=== PATIENT | male | born 1970 | race Two or more races ===

== ENCOUNTER 2023-05-13 16:55 | Inpatient (IN) | payer MEDICAID, SELFPAY ==
--- NOTE | ~2023-05-13 | XR_ITS ---
EXAMINATION: XR FOREARM, RIGHT CLINICAL INFORMATION: Forearm swelling COMPARISON: None available. TECHNIQUE: AP and lateral views of the right forearm were obtained. FINDINGS: Diffuse subcutaneous edema. No soft tissue gas or radiopaque foreign body. No osseous abnormality. XR/XR forearm RT 2V IMPRESSION: Diffuse subcutaneous edema. No soft tissue gas or radiopaque foreign body.
--- NOTE | ~2023-05-13 | CT_ITS ---
EXAMINATION: CT FOREARM WITH CONTRAST, RIGHT CLINICAL INFORMATION: Right forearm swelling COMPARISON: Same day radiographs and ultrasound TECHNIQUE: CT of the right forearm is performed following intravenous administration of 85 mL Omnipaque 350 iodinated contrast. Sagittal and coronal reformats were performed. This CT examination was performed using dose optimization techniques as appropriate, variously including the following: *Automated exposure control *Adjustment of mA and/or kV according to patient size (this includes techniques or standardized protocols for targeted exams where dose is matched to indication/reason for exam; i.e. extremities or head) *Use of iterative reconstruction technique DLP: 188 mGy-cm FINDINGS: Diffuse subcutaneous edema, most prominent along the posterior aspect of the proximal forearm where there is skin thickening and an irregularly shaped, peripherally enhancing collection in the subcutaneous fat measuring 2.2 x 0.8 x 1.7 cm. No soft tissue gas. No radiopaque foreign body. No cortical erosion, periostitis, or other evidence to suggest osteomyelitis. No elbow joint effusion. CT/CT forearm RT w IV con IMPRESSION: Diffuse subcutaneous edema, most prominent along the posterior aspect of the proximal forearm where there is a 2.2 x 0.8 x 1.7 cm peripherally enhancing collection which could represent an abscess.
--- NOTE | ~2023-05-13 | US_ITS ---
EXAMINATION: US VENOUS WITH DOPPLER UPPER EXTREMITY, RIGHT CLINICAL INFORMATION: Right arm swelling/redness evaluate for DVT COMPARISON: None available. TECHNIQUE: Ultrasound of the upper extremity is performed using compression sonography and color and pulse Doppler flow with assessment of augmentation of flow. There is also imaging and Doppler assessment of the jugular and subclavian veins. Spectral analysis with color-flow imaging is performed. FINDINGS: The right internal jugular, subclavian, axillary, and brachial veins are patent on color Doppler and demonstrate normal waveforms on spectral Doppler. No occlusive thrombus is identified. Normal compressibility is demonstrated distal to the clavicle. The right basilic veins are patent without evidence of thrombus. Right cephalic vein was not well visualized. Lymph node noted in the right distal arm measuring 9 mm in short axis. Soft tissue edema involving the right distal arm in the region of the wound. US/US venous duplex UE RT IMPRESSION: 1. No DVT demonstrated in the right upper extremity. 2. Right cephalic vein was not well visualized. 3. Lymph node noted in the right distal arm measuring 9 mm in short axis. 4. Soft tissue edema involving the right distal arm in the region of the wound.
[2023-05-13 17:47] VITALS: BP 132/78; PULSE 103; RESP 18; TEMP 37.6; O2SAT 97; BMI 28.1
--- NOTE | 2023-05-13 17:55 | ED.GENADULT ---
HPI - General Adult General Chief complaint: General Medical Stated complaint: Right arm elbow Infected? Time Seen by Provider: 05/13/23 19:04 Source: patient Mode of arrival: ambulatory Limitations: no limitations History of Present Illness HPI narrative: Patient with history of IVDA , uses heroin with multiple abscesses for last few months noticed redness and swelling of the right forearm for last 3 days getting worse since yesterday with chills and low-grade fever able to move his hand and fingers without significant pain Related Data Home Medications Medication Instructions Recorded Confirmed gabapentin 300 mg capsule 300 mg PO TID 05/13/23 05/13/23 (Neurontin) prazosin 2 mg capsule 2 mg PO BEDTIME 05/13/23 05/13/23 quetiapine 100 mg tablet (Seroquel) 100 mg PO BEDTIME 05/13/23 05/13/23 quetiapine 50 mg tablet (Seroquel) 50 mg PO BEDTIME 05/13/23 05/13/23 Allergies Allergy/AdvReac Type Severity Reaction Status Date / Time cephalexin [From Keflex] Allergy Hives Verified 05/13/23 17:46 Review of Systems Review of Systems: Yes all other systems are reviewed and are negative [facility] Past Medical History Medical History IV drug user Mood disorder Non-insulin dependent type 2 diabetes mellitus Polysubstance abuse Social History Social History Alcohol intake: never Patient Tobacco Use Status: Current everyday Tobacco user Smoked in Last 30 Days: Yes Use of substances other than those prescribed or required for medical reasons: Yes Substance Use Type: Crack/Cocaine and Heroin Advance Directives: No Advance Directives Information Provided: No Nutrition Risks: No Nutritional Risk service: No Physical Exam ED Vital Signs: Vital Signs - 24 hr 05/13/23 17:47 05/13/23 19:19 Temperature 99.6 F 99.7 F Pulse Rate 103 H 100 Respiratory Rate 18 18 Blood Pressure 132/78 137/81 Pulse Oximetry 97 97 Oxygen Delivery Method Room Air Room Air BMI result Body Mass Index 28.1 Appearance: Alert. Oriented X3. No acute distress. ENT: Pharynx normal. Oral Mucosa moist Neck: Normal inspection. Neck supple. CVS: Normal heart rate and rhythm. Pulses normal. Respiratory: No respiratory distress. Equal air entry bilateral, Abdomen: Soft and nontender. Bowel sounds are present, no mass palpable, no CVA tenderness Skin: Skin warm and dry. Normal skin color. Normal skin turgor. Extremities: No lower extremity edema. No calf tenderness, swelling of right forearm with erythema and injury neurovascular intact Diffuse erythematous swelling of right forearm no signs of compartment syndrome at this time Neuro: Oriented X 3. No motor deficit. No sensory deficit.No cerebellar signs , cranial nerves II-XII intact Course Course Course Narrative: RME: 52 yold male presents to the ED For right foream readness spreading up towards chest with swelling. patient is an IV drug user. Labs and imaging ordered. Patient brought immediatley back to the ED. Charge Chaparrita brought patient to the ED. Xray and US ordered Medications Administered Generic Name Dose Route Start Last Admin Trade Name Freq PRN Reason Stop Dose Admin Acetaminophen 650 mg 05/13/23 21:28 05/13/23 22:25 Acetaminophen 325 Mg Tablet PO 650 mg Q6H PRN Administration Pain, Mild (Pain Scale 1-3) Enoxaparin Sodium 40 mg 05/13/23 22:00 05/13/23 22:25 Enoxaparin Sodium 40 Mg/0.4 Ml Syringe SUBCUT 40 mg Q24H JAY JAY Administration Gabapentin 300 mg 05/14/23 09:00 05/14/23 10:19 Gabapentin 300 Mg Capsule PO 300 mg TID JAY JAY Administration Piperacillin Sod/Tazobactam 100 mls @ 200 mls/hr 05/14/23 02:00 05/14/23 11:22 Sod 4.5 gm/ Sodium Chloride IV Infused Q6H JAY JAY Infusion Vancomycin HCl 1,000 mg/ 270 mls @ 270 mls/hr 05/14/23 09:00 05/14/23 12:26 Sodium Chloride IV Infused Q12H JAY JAY Infusion Insulin Human Lispro 0 unit 05/14/23 07:30 05/14/23 07:34 Insulin Lispro 100 Unit/Ml 3 Ml Vial SUBCUT Not Given QIDACHS [facility] Protocol Sodium Chloride 3 ml 05/14/23 00:00 05/14/23 09:03 0.9 % Sodium Chloride Flush 3 Ml Syringe IVFLUSH Not Given QSHIFT [facility] Discontinued Medications Generic Name Dose Route Start Last Admin Trade Name Freq PRN Reason Stop Dose Admin Gabapentin 300 mg 05/13/23 22:40 05/13/23 23:34 Gabapentin 300 Mg Capsule PO 05/13/23 22:41 300 mg ONCE ONE Administration Sodium Chloride 1,000 mls @ 999 mls/hr 05/13/23 19:11 05/13/23 21:00 Ns IV 05/13/23 20:11 Infused .Q1H1M ONE Infusion Vancomycin HCl 1,500 mg/ 500 mls @ 333.333 mls/hr 05/13/23 19:11 05/13/23 22:30 Sodium Chloride IV 05/13/23 20:40 Infused ONCE ONE Infusion Piperacillin Sod/Tazobactam 100 mls @ 200 mls/hr 05/13/23 19:11 05/13/23 20:51 Sod 4.5 gm/ Sodium Chloride IV 05/13/23 19:40 Infused ONCE ONE Infusion Iohexol 100 ml 05/13/23 20:39 05/13/23 20:40 Iohexol 350 Mg/Ml 100 Ml Infus..Btl IV 05/13/23 20:40 85 ml ONCE ONE Administration Ketorolac Tromethamine 30 mg 05/14/23 05:55 05/14/23 06:00 Ketorolac Tromethamine 30 Mg/Ml Vial IVPUSH 05/14/23 05:56 30 mg ONCE ONE Administration Prazosin HCl 2 mg 05/13/23 22:40 05/13/23 23:32 Prazosin Hcl 1 Mg Capsule PO 05/13/23 22:41 2 mg ONCE ONE Administration Protocol Quetiapine Fumarate 150 mg 05/13/23 21:46 05/13/23 22:26 Quetiapine Fumarate 50 Mg Tablet PO 05/13/23 21:47 150 mg ONCE ONE Administration Medical Decision Making Medical Decision Making [facility] Narrative: Patient with IVDA use with right forearm cellulitis ultrasound negative for DVT or fluid collection would do CT scan to rule out any deeper abscess no signs of necrotizing fasciitis/compartment syndrome at this time will give IV vancomycin and IV Zosyn Differential Diagnosis Differential Diagnoses: The differential diagnosis associated with the presentation includes Cellulitis/compartment syndrome/necrotizing fasciitis/abscess Admission/Observation Consideration of admission/observation: Escalation of care including admission/observation considered Consult Healthcare Provider Management of the patient was discussed with: Hospitalist Lab Data [facility] Lab Attestation statement: I reviewed the patient's lab results. 05/13/23 19:32 05/13/23 19:32 Labs: Lab Results 05/13/23 05/13/23 05/13/23 Range/Units 19:32 19:32 19:32 WBC 15.2 H (4.8-10.8) X10*3/uL RBC 4.21 L (4.60-5.80) X10*6/uL Hgb 11.6 L (14.0-18.0) g/dl Hct 35.4 L (42.0-52.0) % MCV 84.1 (80.0-98.0) fL MCH 27.6 (27.0-33.0) pg MCHC 32.8 (31.0-36.0) g/dl RDW 13.0 (11.0-16.0) % Plt Count 204 (160-400) X10*3/uL MPV 9.9 (9.4-12.4) fL Immature Gran % (Auto) 0.4 (0.0-0.4) % Neut % (Auto) 55.7 (45-73) % Lymph % (Auto) 33.4 (20-40) % [place] % (Auto) 9.3 (2-11) % Eos % (Auto) 0.9 (0-4) % Baso % (Auto) 0.3 (0-2) % Lymph # (Auto) 5.1 H (1.2-4.9) X10*3/uL [place] # (Auto) 1.4 H (0.1-1.2) X10*3/uL Eos # (Auto) 0.1 (0.0-0.4) X10*3/uL Baso # (Auto) 0.1 (0.0-0.2) X10*3/uL Abs Immat Gran (auto) 0.06 H (0.00-0.03) X10*3/uL Absolute Neuts (auto) 8.5 H (2.0-8.3) x10*3/uL Absolute Nucleated RBC 0.000 (0.0-0.012) X10*3/uL Nucleated RBC % (auto) 0.0 (0.0-0.2) /100WBC Smear Tech's Comments VERIFIED ESR 70 H (0-15) MM/HR Sodium 140 (135-145) mmol/L Potassium 4.4 (3.3-5.1) mmol/L Chloride 103 (96-108) mmol/L Carbon Dioxide 26 (22-29) mmol/L Anion Gap 15 (12-20) BUN 14 (9-16) mg/dL Creatinine 0.98 (0.5-1.4) mg/dL Estim Creat Clear Calc 96.9 Estimated GFR > 60 Random Glucose 95 (60-115) mg/dL Lactic Acid (0.5-2.0) mmol/L Calcium 10.2 (8.4-10.2) mg/dL Total Bilirubin 0.5 (0.0-1.0) mg/dL AST 23 (5-37) U/L ALT 30 (0-40) U/L Alkaline Phosphatase 94 (39-117) U/L C-Reactive Protein 5.85 H (< or = 0.50) mg/dL Total Protein 8.8 H (6.5-8.0) g/dL Albumin 4.3 (3.5-5.0) g/dL 05/13/23 Range/Units 19:32 WBC (4.8-10.8) X10*3/uL RBC (4.60-5.80) X10*6/uL Hgb (14.0-18.0) g/dl Hct (42.0-52.0) % MCV (80.0-98.0) fL MCH (27.0-33.0) pg MCHC (31.0-36.0) g/dl RDW (11.0-16.0) % Plt Count (160-400) X10*3/uL MPV (9.4-12.4) fL Immature Gran % (Auto) (0.0-0.4) % Neut % (Auto) (45-73) % Lymph % (Auto) (20-40) % [place] % (Auto) (2-11) % Eos % (Auto) (0-4) % Baso % (Auto) (0-2) % Lymph # (Auto) (1.2-4.9) X10*3/uL [place] # (Auto) (0.1-1.2) X10*3/uL Eos # (Auto) (0.0-0.4) X10*3/uL Baso # (Auto) (0.0-0.2) X10*3/uL Abs Immat Gran (auto) (0.00-0.03) X10*3/uL Absolute Neuts (auto) (2.0-8.3) x10*3/uL Absolute Nucleated RBC (0.0-0.012) X10*3/uL Nucleated RBC % (auto) (0.0-0.2) /100WBC Smear Tech's Comments ESR (0-15) MM/HR Sodium (135-145) mmol/L Potassium (3.3-5.1) mmol/L Chloride (96-108) mmol/L Carbon Dioxide (22-29) mmol/L Anion Gap (12-20) BUN (9-16) mg/dL Creatinine (0.5-1.4) mg/dL Estim Creat Clear Calc Estimated GFR Random Glucose (60-115) mg/dL Lactic Acid 0.9 (0.5-2.0) mmol/L Calcium (8.4-10.2) mg/dL Total Bilirubin (0.0-1.0) mg/dL AST (5-37) U/L ALT (0-40) U/L Alkaline Phosphatase (39-117) U/L C-Reactive Protein (< or = 0.50) mg/dL Total Protein (6.5-8.0) g/dL Albumin (3.5-5.0) g/dL Radiology Impression Discussion of test interpretation with radiology: I have reviewed the radiologist's reading. Radiologist Impression: FINDINGS: Diffuse subcutaneous edema, most prominent along the posterior aspect of the proximal forearm where there is skin thickening and an irregularly shaped, peripherally enhancing collection in the subcutaneous fat measuring 2.2 x 0.8 x 1.7 cm. No soft tissue gas. No radiopaque foreign body. No cortical erosion, periostitis, or other evidence to suggest osteomyelitis. No elbow joint effusion. CT/CT forearm RT w IV con IMPRESSION: Diffuse subcutaneous edema, most prominent along the posterior aspect of the proximal forearm where there is a 2.2 x 0.8 x 1.7 cm peripherally enhancing collection which could represent an abscess. ? Discharge Plan Discharge Clinical Impression: Cellulitis, IV drug user, Abscess of forearm, right Patient Disposition: Admitted As Inpatient
[2023-05-13 19:19] VITALS: BP 137/81; PULSE 100; RESP 18; TEMP 37.6; O2SAT 97
[2023-05-13] MEDS: 0.9 % Sodium Chloride 1,000 ML 999 ML IV (19:42)
[2023-05-13] MEDS: Piperacillin Sodium/Tazobactam 4.5 GM in 0.9 % Sodium Chloride 100 ML IV (19:44)
[2023-05-13 19:47] LABS: Basophils Absolute Auto 0.1 X10*3/uL (0.0-0.2); Basophils Percent Auto 0.3 % (0-2); Eosinophils Absolute Auto 0.1 X10*3/uL (0.0-0.4); Eosinophils Percent Auto 0.9 % (0-4); Hematocrit 35.4 % (42.0-52.0); Hemoglobin 11.6 g/dl (14.0-18.0); Imm Gran Abs Auto 0.06 X10*3/uL (0.00-0.03); Imm Gran Pct Auto 0.4 % (0.0-0.4); Lymphocytes Absolute Auto 5.1 X10*3/uL (1.2-4.9); Lymphocytes Percent Auto 33.4 % (20-40); MANUAL DIFF FLAG SCAN; Mean Corpuscular HGB Conc 32.8 g/dl (31.0-36.0); Mean Corpuscular Hemoglobin 27.6 pg (27.0-33.0); Mean Corpuscular Volume 84.1 fL (80.0-98.0); Mean Platelet Volume 9.9 fL (9.4-12.4); Monocytes Absolute Auto 1.4 X10*3/uL (0.1-1.2); Monocytes Percent Auto 9.3 % (2-11); Neutrophils Absolute Auto 8.5 x10*3/uL (2.0-8.3); Neutrophils Percent Auto 55.7 % (45-73); Platelet Count 204 X10*3/uL (160-400); Red Blood Count 4.21 X10*6/uL (4.60-5.80); SCAN SMEAR FLAG 1; White Blood Count 15.2 X10*3/uL (4.8-10.8)
[2023-05-13 19:52] LABS: Lactic Acid 0.9 mmol/L (0.5-2.0)
[2023-05-13 19:57] LABS: Alanine Aminotransferase 30 U/L (0-40); Albumin Level 4.3 g/dL (3.5-5.0); Alkaline Phosphatase 94 U/L (39-117); Anion Gap 15 (12-20); Aspartate Amino Transferase 23 U/L (5-37); Bilirubin Total 0.5 mg/dL (0.0-1.0); Blood Urea Nitrogen 14 mg/dL (9-16); C Reactive Protein 5.85 mg/dL (< or = 0.50); Calcium 10.2 mg/dL (8.4-10.2); Carbon Dioxide 26 mmol/L (22-29); Chloride 103 mmol/L (96-108); Creatinine Clr Calc Pharmacy 96.9; Estimated Glomerular Filt Rate > 60; Glucose Random 95 mg/dL (60-115); Potassium 4.4 mmol/L (3.3-5.1); Sodium 140 mmol/L (135-145); Total Protein 8.8 g/dL (6.5-8.0)
[2023-05-13 20:08] LABS: SLIDE REVIEW VERIFIED
[2023-05-13 20:34] LABS: Erythrocyte Sedimentation Rate 70 MM/HR (0-15)
[2023-05-13] MEDS: iohexoL 350 MG/ML 100 ML INFUS..BTL IV (20:40)
[2023-05-13] MEDS: vancomycin HCL 1,500 MG in 0.9 % Sodium Chloride 500 ML 333.33 MG IV (20:59)
--- NOTE | 2023-05-13 21:11 | PC.NURSE ---
This automatic typewriter inspector assumed care of this Pt at 1900. Pt reports constant 9/10 right arm pain x few days with fevers, chills and nausea after IV drug use. Arm is swollen, warm to touch from elbow down to lower forearm. IV line established, blood work collected and sent to lab, meds given per NOV, Pt ambulated independently to with steady gait.
--- NOTE | 2023-05-13 21:29 | PM.IMHP ---
History of Present Illness Date of Service: 05/13/23 Chief Complaint: Right arm swelling This is a 52-year-old male with pertinent history of IV poly substance use disorder, hiw-kgkefwy-cdremzyir diabetes mellitus, mood disorder, tobacco use disorder who presents to the emergency department for evaluation of right arm pain, swelling redness. Patient states it started 2 days prior to presentation. It has been progressive and associated with purulent drainage. Patient states that he does have a history of multiple abscesses in the past due to his history of IV drug use. He uses IV heroin and IV fentanyl. Admits chills and fever. No chest discomfort, palpitations, shortness of breath, abdominal pain, changes in urinary or bowel habits. In the emergency department, patient was found to be septic and imaging concerning for abscess. Review of Systems Constitutional: Constitutional: Reports chills, Reports fatigue, Reports fever(s) and Reports malaise Cardiovascular: Cardiovascular: Reports no additional cardiovascular complaints Respiratory: Respiratory: Reports no additional respiratory complaints Gastrointestinal: Gastrointestinal: Reports no additional gastrointestinal complaints Genitourinary: Genitourinary: Reports no additional male genitourinary complaints Endocrine: Endocrine: Reports fatigue PMFSH Medical History IV drug user Mood disorder Non-insulin dependent type 2 diabetes mellitus Polysubstance abuse Pertinent family history: No family history of early CAD Social History Alcohol intake: never Smoked in Last 30 Days: Yes Use of substances other than those prescribed or required for medical reasons: Yes Substance Use Type: Crack/Cocaine and Heroin Advance Directives: No Advance Directives Information Provided: No Meds Allergies Allergy/AdvReac Type Severity Reaction Status Date / Time cephalexin [From Keflex] Allergy Hives Verified 05/13/23 17:46 Home Medications Medication Instructions Recorded Confirmed Last Taken Type gabapentin 300 mg capsule 300 mg PO 05/13/23 Unknown History (Neurontin) prazosin 2 mg capsule 2 mg PO BEDTIME 05/13/23 05/13/23 Unknown History quetiapine 100 mg tablet (Seroquel) 100 mg PO BEDTIME 05/13/23 05/13/23 Unknown History quetiapine 50 mg tablet (Seroquel) 50 mg PO BEDTIME 05/13/23 05/13/23 Unknown History Physical Exam Vital Signs and Narrative: Vital Signs: Last Vital Signs Temp 99.7 F 05/13/23 19:19 Pulse 100 05/13/23 19:19 Resp 18 05/13/23 19:19 BP 137/81 05/13/23 19:19 Pulse Ox 97 05/13/23 19:19 O2 Del Method Room Air 05/13/23 19:19 BMI result Body Mass Index 28.1 Middle-aged male lying in bed in no distress Neck supple, no JVD Regular rate and rhythm, S1-S2 heard Regular breath sounds bilaterally, no wheezing or crackles appreciated Abdomen soft nontender, no guarding, no rigidity Patient is awake, alert and oriented to self, place, time and person ; no focal motor deficit Skin: Bilateral hands with injection robertson, right arm with swelling, tenderness and erythema and fluctuance Psych: Normal mood No pedal edema Results Labs 05/13/23 19:32 05/13/23 19:32 Labs: Laboratory Results - last 24 hr 05/13/23 05/13/23 05/13/23 19:32 19:32 19:32 MCV 84.1 MCH 27.6 MCHC 32.8 RDW 13.0 Plt Count 204 MPV 9.9 Immature Gran % (Auto) 0.4 Neut % (Auto) 55.7 Lymph % (Auto) 33.4 [place] % (Auto) 9.3 Eos % (Auto) 0.9 Baso % (Auto) 0.3 Lymph # (Auto) 5.1 H [place] # (Auto) 1.4 H Eos # (Auto) 0.1 Baso # (Auto) 0.1 Abs Immat Gran (auto) 0.06 H Absolute Neuts (auto) 8.5 H Absolute Nucleated RBC 0.000 Nucleated RBC % (auto) 0.0 Smear Tech's Comments VERIFIED ESR 70 H Anion Gap 15 Estim Creat Clear Calc 96.9 Estimated GFR > 60 Random Glucose 95 Lactic Acid Calcium 10.2 Total Bilirubin 0.5 AST 23 ALT 30 Alkaline Phosphatase 94 C-Reactive Protein 5.85 H Total Protein 8.8 H Albumin 4.3 05/13/23 19:32 MCV MCH MCHC RDW Plt Count MPV Immature Gran % (Auto) Neut % (Auto) Lymph % (Auto) [place] % (Auto) Eos % (Auto) Baso % (Auto) Lymph # (Auto) [place] # (Auto) Eos # (Auto) Baso # (Auto) Abs Immat Gran (auto) Absolute Neuts (auto) Absolute Nucleated RBC Nucleated RBC % (auto) Smear Tech's Comments ESR Anion Gap Estim Creat Clear Calc Estimated GFR Random Glucose Lactic Acid 0.9 Calcium Total Bilirubin AST ALT Alkaline Phosphatase C-Reactive Protein Total Protein Albumin Imaging Radiologist's Impressions: Impressions Venous Duplex 05/13/23 18:13 IMPRESSION: 1. No DVT demonstrated in the right upper extremity. 2. Right cephalic vein was not well visualized. 3. Lymph node noted in the right distal arm measuring 9 mm in short axis. 4. Soft tissue edema involving the right distal arm in the region of the wound. Forearm X-Ray 05/13/23 18:41 IMPRESSION: Diffuse subcutaneous edema. No soft tissue gas or radiopaque foreign body. Forearm CT 05/13/23 20:22 IMPRESSION: Diffuse subcutaneous edema, most prominent along the posterior aspect of the proximal forearm where there is a 2.2 x 0.8 x 1.7 cm peripherally enhancing collection which could represent an abscess. Assessment and Plan (1) Cellulitis: Status: Acute Plan This is a 52-year-old male with pertinent history of IV poly substance use disorder, rrp-doglmwc-ckvldfwrt diabetes mellitus, mood disorder, tobacco use disorder who presents to the emergency department for evaluation of right arm pain, swelling redness. #. Sepsis due to right arm purulent cellulitis and abscess. Will admit patient and initiate empiric IV antibiotics. Resuscitated with IV crystalloids. Consulting general surgery for I&D. Lactic acid and blood cultures obtained #. Poly substance use disorder. Patient admits to using heroin and fentanyl. UDS pending. Addiction team consulted. Monitor for withdrawal #. Tobacco use disorder. Refused nicotine patch #. Hnf-occkerv-zmlvbxwsu diabetes mellitus. Initiating Accu-Cheks with sliding scale insulin. #. Mood disorder. Continue home mood stabilizers Med rec pending DVT prophylaxis: Lovenox Full code Admit as inpatient and will require two night minimum hospital stay for IV antibiotics Time Spent With Patient Time: Total time managing care of this patient today ____ minutes. Quality Stroke Does the patient have a stroke diagnosis?: No VTE Prior VTE?: No VTE Risk Level:: Medical - moderate - high VTE Device Contraindication: Treatment Not Indicated VTE Drug Contraindication: N/A - Med Ordered
--- NOTE | 2023-05-13 21:55 | PHA.PROG ---
Admission Date/Time: May 13, 2023 21:28 Indication: SKIN Weight in k.183 kg Adjusted body weight in Kg: [place] body weight in Kg: Obesity Dosing Indication % IBW: Serum Creatinine - Last 168 Hours 05/13/23 19:32 Creatinine 0.98 Estimated CrCl and GFR - Last 168 Hours 05/13/23 19:32 Estim Creat Clear Calc 96.9 Estimated GFR > 60 Vancomycin Loading Dose: 1500 Current Vancomycin Dosing Regimen:1000 Q12H Vancomycin Monitoring using AUC goal of 400 - 600 range with trough as surrogate marker:535 Date and Time for next Vancomycin Level to be drawn: Pharmacist Comments on Vancomycin Plan: Vancomycin dosing will take advantage of Saper[employer] as a clinical decision support tool that uses Bayesian modeling to calculate individual patient's pharmacokinetic parameters and forecast the patient's drug concentration time course with the target goal AUC 24 range of 400 - 600 mg/L/hr.
[2023-05-13] MEDS: Acetaminophen 325 MG TABLET 650 MG PO (22:25)
[2023-05-13] MEDS: Enoxaparin Sodium 40 MG/0.4 ML SYRINGE SUBCUT (22:25)
[2023-05-13] MEDS: QUEtiapine Fumarate 50 MG TABLET 150 MG PO (22:26)
--- NOTE | 2023-05-13 23:00 | PC.NURSE ---
Pt reports he takes 90 mg of Methadone, last dose was this AM, doses at [facility] in [place].
[2023-05-13] MEDS: Prazosin HCL 1 MG CAPSULE 2 MG PO (23:32)
[2023-05-13 23:34] VITALS: BP 113/69; PULSE 90; RESP 16; TEMP 37.1; O2SAT 97
[2023-05-13] MEDS: Gabapentin 300 MG CAPSULE PO (23:34)
[2023-05-14] MEDS: 0.9 % Sodium Chloride Flush 3 ML SYRINGE IVFLUSH ×2 (01:25→20:37)
[2023-05-14] MEDS: Piperacillin Sodium/Tazobactam 4.5 GM in 0.9 % Sodium Chloride 100 ML IV ×4 (01:31→20:36)
[2023-05-14 02:32] VITALS: BP 98/60; PULSE 83; RESP 14; O2SAT 96
[2023-05-14 05:17] LABS: Basophils Absolute Auto 0.1 X10*3/uL (0.0-0.2); Basophils Percent Auto 0.4 % (0-2); Eosinophils Absolute Auto 0.2 X10*3/uL (0.0-0.4); Eosinophils Percent Auto 1.5 % (0-4); Hematocrit 33.2 % (42.0-52.0); Hemoglobin 10.7 g/dl (14.0-18.0); Imm Gran Abs Auto 0.06 X10*3/uL (0.00-0.03); Imm Gran Pct Auto 0.5 % (0.0-0.4); Lymphocytes Percent Auto 38.2 % (20-40); MANUAL DIFF FLAG SCAN; Mean Corpuscular HGB Conc 32.2 g/dl (31.0-36.0); Mean Corpuscular Hemoglobin 27.6 pg (27.0-33.0); Mean Corpuscular Volume 85.8 fL (80.0-98.0); Mean Platelet Volume 10.2 fL (9.4-12.4); Monocytes Absolute Auto 1.7 X10*3/uL (0.1-1.2); Monocytes Percent Auto 12.8 % (2-11); Neutrophils Absolute Auto 6.1 x10*3/uL (2.0-8.3); Neutrophils Percent Auto 46.6 % (45-73); Platelet Count 197 X10*3/uL (160-400); Red Blood Count 3.87 X10*6/uL (4.60-5.80); Red Cell Distribution Width 12.9 % (11.0-16.0); SCAN SMEAR FLAG 1
[2023-05-14 05:33] LABS: Anion Gap 10 (12-20); Blood Urea Nitrogen 13 mg/dL (9-16); Calcium 9.3 mg/dL (8.4-10.2); Carbon Dioxide 26 mmol/L (22-29); Chloride 107 mmol/L (96-108); Creatinine Clr Calc Pharmacy 105.6; Estimated Glomerular Filt Rate > 60; Glucose Random 115 mg/dL (60-115); Potassium 3.8 mmol/L (3.3-5.1); Sodium 139 mmol/L (135-145)
[2023-05-14 05:38] LABS: SLIDE REVIEW VERIFIED
[2023-05-14 05:56] VITALS: BP 126/88; PULSE 85; RESP 20; TEMP 36.8; O2SAT 100
[2023-05-14] MEDS: Ketorolac Tromethamine 30 MG/ML VIAL IVPUSH (06:00)
--- NOTE | 2023-05-14 06:04 | PC.NURSE ---
Pt sitting at edge of stretcher, reports 10/10 right arm pain, small open area noted near elbow, draining yellow fluid. Dr. Cavazos notified, new order given as documented, WCTM.
--- NOTE | 2023-05-14 06:28 | PM.EVENT ---
Event Note Date of Service: 05/14/23 Event Note: General surgery requesting ortho consult for arm abscess. Will consult ortho for assistance Time Spent With Patient Time: Total time managing care of this patient today ____ minutes.
--- NOTE | 2023-05-14 07:07 | PHA.MEDREC ---
Pharmacy Consult ? Medication Reconciliation Pharmacy has completed the medication reconciliation. Completed by RN, reviewed by pharmacy Omar
--- NOTE | 2023-05-14 07:19 | PM.CNGS ---
History of Present Illness Consult details Consult date: 05/14/23 Narrative: The patient is a 52-year-old gentleman, RHD, seen at the request of the hospitalist service due to a right arm abscess and extensive right hand pain and swelling. Patient notes that he does shoot IV drugs, but had never shot in this location. He states that on Sunday he started having increasing pain involving his hand and then started developed swelling. He denies remembering any trauma to this location. He is exquisitely uncomfortable. Review of Systems Review of Systems: Yes all other systems are reviewed and are negative Constitutional: Constitutional: Reports as per [facility] Past Medical History Medical History IV drug user Mood disorder Non-insulin dependent type 2 diabetes mellitus Polysubstance abuse Social History Social History Alcohol intake: never Patient Tobacco Use Status: Current everyday Tobacco user Smoked in Last 30 Days: Yes Use of substances other than those prescribed or required for medical reasons: Yes Substance Use Type: Crack/Cocaine and Heroin Advance Directives: No Advance Directives Information Provided: No Nutrition Risks: No Nutritional Risk Meds Allergies Allergy/AdvReac Type Severity Reaction Status Date / Time cephalexin [From Keflex] Allergy Hives Verified 05/13/23 17:46 Active Medications: Current Medications Acetaminophen (Acetaminophen 325 Mg Tablet) 650 mg PO Q6H PRN PRN Reason: Pain, Mild (Pain Scale 1-3) Last Admin: 05/13/23 22:25 Dose: 650 mg Dextrose (Dextrose 50 % 25 Gm/50 Ml Syringe) 25 gm IVPUSH Q15M PRN; Protocol PRN Reason: per Hypoglycemia Standing Ord. Enoxaparin Sodium (Enoxaparin Sodium 40 Mg/0.4 Ml Syringe) 40 mg SUBCUT Q24H JAY [facility]AY Last Admin: 05/13/23 22:25 Dose: 40 mg Glucose (Glucose Gel 15 Gm Gel..Gram.) 15 gm PO Q15M PRN; Protocol PRN Reason: per Hypoglycemia Standing Ord. Piperacillin Sod/Tazobactam (Sod 4.5 gm/ Sodium Chloride) 100 mls @ 200 mls/hr IV Q6H [facility] Last Infusion: 05/14/23 02:01 Dose: Infused Vancomycin HCl 1,000 mg/ (Sodium Chloride) 270 mls @ 270 mls/hr IV Q12H [facility] Insulin Human Lispro (Insulin Lispro 100 Unit/Ml 3 Ml Vial) 0 unit SUBCUT QIDACHS JAY JAY; Protocol Melatonin (Melatonin 3 Mg Tablet) 6 mg PO BEDTIME PRN PRN Reason: Insomnia Ondansetron HCl (Ondansetron Hcl 4 Mg/2 Ml Vial) 4 mg IVPUSH Q8H PRN PRN Reason: Nausea and Vomiting Pharmacy Consult (Consult Rx Vancomycin Dosing) 1 each MISCELLANE DAILY PRN PRN Reason: Consult order Pharmacy Consult (Consult Rx Perform Med Rec) 1 each MISCELLANE ONCE PRN PRN Reason: Consult order Sodium Chloride (0.9 % Sodium Chloride Flush 3 Ml Syringe) 3 ml IVFLUSH QSHIFT COUNTS INCLUDE 234 BEDS AT THE [facility] Last Admin: 05/14/23 01:25 Dose: 3 ml Home Medications Medication Instructions Recorded Confirmed Last Taken Type gabapentin 300 mg capsule 300 mg PO TID 05/13/23 05/13/23 Unknown History (Neurontin) prazosin 2 mg capsule 2 mg PO BEDTIME 05/13/23 05/13/23 Unknown History quetiapine 100 mg tablet (Seroquel) 100 mg PO BEDTIME 05/13/23 05/13/23 Unknown History quetiapine 50 mg tablet (Seroquel) 50 mg PO BEDTIME 05/13/23 05/13/23 Unknown History Physical Exam Vital Signs: Vital Signs: Last Vital Signs Temp 98.2 F 05/14/23 05:56 Pulse 85 05/14/23 05:56 Resp 20 05/14/23 05:56 BP 126/88 05/14/23 05:56 Pulse Ox 100 05/14/23 05:56 O2 Del Method Room Air 05/14/23 05:56 BMI result Body Mass Index 28.1 On exam, the patient was extremely uncomfortable with diffuse swelling of his right forearm into his hand. He reports pain involving his entire forearm. There is an abscess on the right dorsal upper forearm below the elbow but extensive swelling Results Labs 05/14/23 04:46 05/14/23 04:46 Labs: Abnormal lab results 05/13/23 05/13/23 05/13/23 Range/Units 19:32 19:32 19:32 WBC 15.2 H (4.8-10.8) X10*3/uL RBC 4.21 L (4.60-5.80) X10*6/uL Hgb 11.6 L (14.0-18.0) g/dl Hct 35.4 L (42.0-52.0) % Immature Gran % (Auto) (0.0-0.4) % [place] % (Auto) (2-11) % Lymph # (Auto) 5.1 H (1.2-4.9) X10*3/uL [place] # (Auto) 1.4 H (0.1-1.2) X10*3/uL Abs Immat Gran (auto) 0.06 H (0.00-0.03) X10*3/uL Absolute Neuts (auto) 8.5 H (2.0-8.3) x10*3/uL ESR 70 H (0-15) MM/HR Anion Gap (12-20) C-Reactive Protein 5.85 H (< or = 0.50) mg/dL Total Protein 8.8 H (6.5-8.0) g/dL 05/14/23 05/14/23 Range/Units 04:46 04:46 WBC 13.0 H (4.8-10.8) X10*3/uL RBC 3.87 L (4.60-5.80) X10*6/uL Hgb 10.7 L (14.0-18.0) g/dl Hct 33.2 L (42.0-52.0) % Immature Gran % (Auto) 0.5 H (0.0-0.4) % [place] % (Auto) 12.8 H (2-11) % Lymph # (Auto) 5.0 H (1.2-4.9) X10*3/uL [place]ower # (Auto) 1.7 H (0.1-1.2) X10*3/uL Abs Immat Gran (auto) 0.06 H (0.00-0.03) X10*3/uL Absolute Neuts (auto) (2.0-8.3) x10*3/uL ESR (0-15) MM/HR Anion Gap 10 L (12-20) C-Reactive Protein (< or = 0.50) mg/dL Total Protein (6.5-8.0) g/dL Short CBC 05/13/23 05/14/23 Range/Units 19:32 04:46 WBC 15.2 H 13.0 H (4.8-10.8) X10*3/uL Hgb 11.6 L 10.7 L (14.0-18.0) g/dl Hct 35.4 L 33.2 L (42.0-52.0) % Plt Count 204 197 (160-400) X10*3/uL BMP 05/13/23 05/14/23 19:32 04:46 Sodium 140 139 Potassium 4.4 3.8 Chloride 103 107 Carbon Dioxide 26 26 BUN 14 13 Creatinine 0.98 0.90 Calcium 10.2 9.3 D Liver Function 05/13/23 Range/Units 19:32 Total Bilirubin 0.5 (0.0-1.0) mg/dL AST 23 (5-37) U/L ALT 30 (0-40) U/L Alkaline Phosphatase 94 (39-117) U/L Albumin 4.3 (3.5-5.0) g/dL All other labs normal. Imaging Additional studies: I reviewed the images of the right forearm CT and concur that there is an extensive amount of forearm inflammation Assessment and Plan (1) Abscess of forearm, right: Status: Acute (2) Cellulitis: Status: Acute (3) Polysubstance abuse: Status: Acute (4) Non-insulin dependent type 2 diabetes mellitus: Status: Acute (5) IV drug user: Status: Acute (6) Mood disorder: Status: Acute Plan Recommend evaluation by hand surgeon. Time Spent With Patient Time: Total time managing care of this patient today ____ minutes. Procedures Date of Service Date of Service: 05/14/23
[2023-05-14 07:37] LABS: Glucose, Whole Blood 120 mg/dL (60-115)
--- NOTE | 2023-05-14 08:28 | P.CONOP_ITS ---
History of Present Illness HPI Consult date: 05/14/23 Chief complaint: right arm infection Narrative: Patient with history of IVDA ,? uses heroin with multiple abscesses for last few months noticed redness and swelling of the right forearm for last 3 days getting worse since yesterday with chills and low-grade fever able to move his hand and fingers without significant pain. On IV abs and being admitted to medical service. [facility] Past Medical History Medical History IV drug user Mood disorder Non-insulin dependent type 2 diabetes mellitus Polysubstance abuse Social History Social History Alcohol intake: never Patient Tobacco Use Status: Current everyday Tobacco user Smoked in Last 30 Days: Yes Use of substances other than those prescribed or required for medical reasons: Yes Substance Use Type: Crack/Cocaine and Heroin Advance Directives: No Advance Directives Information Provided: No Nutrition Risks: No Nutritional Risk Meds Allergies Allergy/AdvReac Type Severity Reaction Status Date / Time cephalexin [From Keflex] Allergy Hives Verified 05/13/23 17:46 Active Medications: Current Medications Acetaminophen (Acetaminophen 325 Mg Tablet) 650 mg PO Q6H PRN PRN Reason: Pain, Mild (Pain Scale 1-3) Last Admin: 05/13/23 22:25 Dose: 650 mg Dextrose (Dextrose 50 % 25 Gm/50 Ml Syringe) 25 gm IVPUSH Q15M PRN; Protocol PRN Reason: per Hypoglycemia Standing Ord. Enoxaparin Sodium (Enoxaparin Sodium 40 Mg/0.4 Ml Syringe) 40 mg SUBCUT Q24H JAY JAY Last Admin: 05/13/23 22:25 Dose: 40 mg Gabapentin (Gabapentin 300 Mg Capsule) 300 mg PO TID JAY JAY Glucose (Glucose Gel 15 Gm Gel..Gram.) 15 gm PO Q15M PRN; Protocol PRN Reason: per Hypoglycemia Standing Ord. Piperacillin Sod/Tazobactam (Sod 4.5 gm/ Sodium Chloride) 100 mls @ 200 mls/hr IV Q6H [facility] Last Infusion: 05/14/23 02:01 Dose: Infused Vancomycin HCl 1,000 mg/ (Sodium Chloride) 270 mls @ 270 mls/hr IV Q12H [facility] Insulin Human Lispro (Insulin Lispro 100 Unit/Ml 3 Ml Vial) 0 unit SUBCUT QIDACHS JAY JAY; Protocol Last Admin: 05/14/23 07:34 Dose: Not Given Melatonin (Melatonin 3 Mg Tablet) 6 mg PO BEDTIME PRN PRN Reason: Insomnia Morphine Sulfate (Morphine Sulfate 4 Mg/Ml Cartridge) 4 mg IVPUSH Q4H PRN; Protocol PRN Reason: Pain, Severe (Pain Scale 7-10) Ondansetron HCl (Ondansetron Hcl 4 Mg/2 Ml Vial) 4 mg IVPUSH Q8H PRN PRN Reason: Nausea and Vomiting Pharmacy Consult (Consult Rx Vancomycin Dosing) 1 each MISCELLANE DAILY PRN PRN Reason: Consult order Pharmacy Consult (Consult Rx Perform Med Rec) 1 each MISCELLANE ONCE PRN PRN Reason: Consult order Prazosin HCl (Prazosin Hcl 1 Mg Capsule) 2 mg PO BEDTIME JAY JAY; Protocol Quetiapine Fumarate (Quetiapine Fumarate 50 Mg Tablet) 50 mg PO BEDTIME JAY JAY Quetiapine Fumarate (Quetiapine Fumarate 100 Mg Tablet) 100 mg PO BEDTIME [facility] Sodium Chloride (0.9 % Sodium Chloride Flush 3 Ml Syringe) 3 ml IVFLUSH QSHIFT [facility] Last Admin: 05/14/23 01:25 Dose: 3 ml Home Medications Medication Instructions Recorded Confirmed Last Taken Type gabapentin 300 mg capsule 300 mg PO TID 05/13/23 05/13/23 Unknown History (Neurontin) prazosin 2 mg capsule 2 mg PO BEDTIME 05/13/23 05/13/23 Unknown History quetiapine 100 mg tablet (Seroquel) 100 mg PO BEDTIME 05/13/23 05/13/23 Unknown History quetiapine 50 mg tablet (Seroquel) 50 mg PO BEDTIME 05/13/23 05/13/23 Unknown History Physical Exam Vital Signs: Vital Signs: Last Vital Signs Temp 98.2 F 05/14/23 05:56 Pulse 85 05/14/23 05:56 Resp 20 05/14/23 05:56 BP 126/88 05/14/23 05:56 Pulse Ox 100 05/14/23 05:56 O2 Del Method Room Air 05/14/23 05:56 BMI result Body Mass Index 28.1 Extrem: Other: RIght volar forearm ~ 5 -8 cm distal to elbow there is a fluctuant abcess with min drainage. Surrounding area is erythematous but soft. No pain with elbow ROM or finger ROM Results Labs 05/14/23 04:46 05/14/23 04:46 Labs: Abnormal lab results 05/13/23 05/13/23 05/13/23 Range/Units 19:32 19:32 19:32 WBC 15.2 H (4.8-10.8) X10*3/uL RBC 4.21 L (4.60-5.80) X10*6/uL Hgb 11.6 L (14.0-18.0) g/dl Hct 35.4 L (42.0-52.0) % Immature Gran % (Auto) (0.0-0.4) % [place] % (Auto) (2-11) % Lymph # (Auto) 5.1 H (1.2-4.9) X10*3/uL [place] # (Auto) 1.4 H (0.1-1.2) X10*3/uL Abs Immat Gran (auto) 0.06 H (0.00-0.03) X10*3/uL Absolute Neuts (auto) 8.5 H (2.0-8.3) x10*3/uL ESR 70 H (0-15) MM/HR Anion Gap (12-20) POC Glucose (60-115) mg/dL C-Reactive Protein 5.85 H (< or = 0.50) mg/dL Total Protein 8.8 H (6.5-8.0) g/dL 05/14/23 05/14/23 05/14/23 Range/Units 04:46 04:46 07:33 WBC 13.0 H (4.8-10.8) X10*3/uL RBC 3.87 L (4.60-5.80) X10*6/uL Hgb 10.7 L (14.0-18.0) g/dl Hct 33.2 L (42.0-52.0) % Immature Gran % (Auto) 0.5 H (0.0-0.4) % [place] % (Auto) 12.8 H (2-11) % Lymph # (Auto) 5.0 H (1.2-4.9) X10*3/uL [place] # (Auto) 1.7 H (0.1-1.2) X10*3/uL Abs Immat Gran (auto) 0.06 H (0.00-0.03) X10*3/uL Absolute Neuts (auto) (2.0-8.3) x10*3/uL ESR (0-15) MM/HR Anion Gap 10 L (12-20) POC Glucose 120 H (60-115) mg/dL C-Reactive Protein (< or = 0.50) mg/dL Total Protein (6.5-8.0) g/dL H & H 05/13/23 05/14/23 Range/Units 19:32 04:46 Hgb 11.6 L 10.7 L (14.0-18.0) g/dl Hct 35.4 L 33.2 L (42.0-52.0) % All other labs normal. Assessment and Plan (1) Abscess of forearm, right: Status: Acute Plan Abcess in volar forearm, right. being admitted to medicine on IV abx I recommend warm water soaks and continue abx. May consider bedside I and D vs operative debridement but ate just now and abcess may consolidate with soaks. Time Spent With Patient Time: Total time managing care of this patient today ____ minutes. Procedures Date of Service Date of Service: 05/14/23
--- NOTE | 2023-05-14 08:35 | PC.NURSE ---
Methadone dosage verified, and faxed to pharm. Pt taking 90mg daily of Methadone, last dose 05/13/23
--- NOTE | 2023-05-14 08:47 | PC.NURSE ---
pt a&ox3. respirations even and unlabored. pt resting, reports no pain. medicated per mar.
--- NOTE | 2023-05-14 09:26 | HE.PHANOTE ---
RE: [facility] Pharmacy received patients methadone verification form. Patient confirmed to be on 90 mg, last doses 05/13/23 with ALLISON eSrrano
[2023-05-14] MEDS: Gabapentin 300 MG CAPSULE PO ×3 (10:19→20:38)
[2023-05-14] MEDS: vancomycin HCL 1,000 MG in 0.9 % Sodium Chloride 250 ML 270 MG IV ×2 (10:19→21:18)
[2023-05-14 10:37] LABS: Amphetamine Screen Urine Not Detected (Not Detect); Barbiturates, Urine Not Detected (Not Detect); Benzodiazepines Screen Urine Not Detected (Not Detect); Cannabinoid Screen Urine Not Detected (Not Detect); Cocaine Screen Urine Not Detected (Not Detect); Opiate Screen Urine Not Detected (Not Detect); Phencyclidine Screen Urine Not Detected (Not Detect)
[2023-05-14 11:14] LABS: Fentanyl, urine Not Detected (Not Detect)
--- NOTE | 2023-05-14 11:46 | MHC.CM.PN ---
Addendum entered by Meme Peralta 05/14/23 15:09: CM MET WITH PT AT HIS REQUEST, HE REPORTS HE IS WORRIED ABOUT LOSING HIS BED AT THE TSS HE REPORTS HE CALLED THE HOUSE AND SPOKE TO A STAFF MEMBER WHO TOLD HIM HE WOULD BE FINE, BUT HE IS TILL WORRIED BECAUSE IN THE PAST HE HAS BEEN DISCHARGED FROM [facility] DUE TO BEING IN THE HOSPITAL. HE SAYS HE WAS TOLD THE INSURANCE WOULD NOT PAY FOR TWO PLACES AT ONCE. CM AGREED TO CALL [facility] TO CONFIRM WHAT HE WAS TOLD CM CALLED [facility] [phone] AND SPOKE TO GUILHERME SINCLAIR WHO REPORTS IF THE PERSON AT THE HOUSE TOLD THE PT IT WOULD BE OK, THEN THEY WILL KEEP HIS BED FOR HIM. SHE SAYS IT IS NOT LIKE WHEN PTS LEAVE A DETOX, WHEN THEY ARE AT A TSS, THEY FILE FOR A BED RETENTION WITH THE INSURANCE. PT INFORMED Original Note: This narrative writer met with patient for CM assessment. Patient is from the [facility]- living in a Transitional Housing setting. He reports recently re-locating. PCP is Anoop Abad from the [facility]. Declined completing HCP. Independent @ baseline. D/P plan- home no services, transitional housing to transport.
--- NOTE | 2023-05-14 12:04 | MHC.RECOVRN ---
This chief writer met with patient earlier after receiving addiction consult. Pt presented with right forearm, red, swollen, fever/chills. Pt was resting in bed, lights dim, awake to verbal command. At 9:15am, pt had reported some pain. Pt denied withdrawal s/s at 9:15am. Reviewed that MTD had been verified and pt to receive MTD dose here at [facility]. Pt reports typically receives dose daily at approximately 9am. This chief writer introduced self to patient and role of Addiction/Recovery team, to return to the bedside when pt more alert and comfortable.
[2023-05-14 12:34] LABS: Glucose, Whole Blood 91 mg/dL (60-115)
--- NOTE | 2023-05-14 13:05 | P.PNIM_ITS ---
Subjective Subjective Date of Service: 05/14/23 Interval History: complaining of right forearm pain, feeling chills, no fevers, headache resolved no nausea ,no vomiting, no abdominal pain, no diarrhea, no chest pain, no shortness of breath no other acute issues, denies using IV drugs right arm, denying use of IV drugs at present. Review of Systems all other system reviewed and negative. Physical Exam Vital Signs: Vital Signs: Last Vital Signs Temp 98.2 F 05/14/23 05:56 Pulse 85 05/14/23 05:56 Resp 20 05/14/23 05:56 BP 126/88 05/14/23 05:56 Pulse Ox 100 05/14/23 05:56 O2 Del Method Room Air 05/14/23 05:56 BMI result Body Mass Index 28.1 Const: Other: General awake alert x3, in no acute distress. Neck supple no JVD. CVS regular rate rhythm, Respiratory lungs clear to auscultation, no respiratory distress, no wheeze, no rhonchi. Gastrointestinal abdomen soft, nontender, bowel sounds audible, no guarding , no rigidity. Lower Extremities no edema. Neuro nonfocal right forearm diffuse swelling, redness, warmth, tenderness to palpation, abscess right dorsal upper forearm below the elbow, no drainage noted Skin no rash psych appropriate affect Objective Data Active Medications Acetaminophen (Acetaminophen 325 Mg Tablet) 650 mg PO Q6H PRN PRN Reason: Pain, Mild (Pain Scale 1-3) Last Admin: 05/13/23 22:25 Dose: 650 mg Documented By: FLORENTIN Dextrose (Dextrose 50 % 25 Gm/50 Ml Syringe) 25 gm IVPUSH Q15M PRN; Protocol PRN Reason: per Hypoglycemia Standing Ord. Enoxaparin Sodium (Enoxaparin Sodium 40 Mg/0.4 Ml Syringe) 40 mg SUBCUT Q24H [facility] Last Admin: 05/13/23 22:25 Dose: 40 mg Documented By: FLORENTIN Gabapentin (Gabapentin 300 Mg Capsule) 300 mg PO TID [facility] Last Admin: 05/14/23 10:19 Dose: 300 mg Documented By: MARYSOL Glucose (Glucose Gel 15 Gm Gel..Gram.) 15 gm PO Q15M PRN; Protocol PRN Reason: per Hypoglycemia Standing Ord. Piperacillin Sod/Tazobactam (Sod 4.5 gm/ Sodium Chloride) 100 mls @ 200 mls/hr IV Q6H [facility] Last Infusion: 05/14/23 11:22 Dose: 0 mls/hr Documented By: MARYSOL Vancomycin HCl 1,000 mg/ (Sodium Chloride) 270 mls @ 270 mls/hr IV Q12H [facility] Last Infusion: 05/14/23 12:26 Dose: 0 mls/hr Documented By: MARYSOL Insulin Human Lispro (Insulin Lispro 100 Unit/Ml 3 Ml Vial) 0 unit SUBCUT QIDACHS [facility]; Protocol Last Admin: 05/14/23 07:34 Dose: Not Given Documented By: MARYSOL Non-Admin Reason: No Insulin Coverage Comments: poc 120 Melatonin (Melatonin 3 Mg Tablet) 6 mg PO BEDTIME PRN PRN Reason: Insomnia Morphine Sulfate (Morphine Sulfate 4 Mg/Ml Cartridge) 4 mg IVPUSH Q4H PRN; Protocol PRN Reason: Pain, Severe (Pain Scale 7-10) Ondansetron HCl (Ondansetron Hcl 4 Mg/2 Ml Vial) 4 mg IVPUSH Q8H PRN PRN Reason: Nausea and Vomiting Pharmacy Consult (Consult Rx Vancomycin Dosing) 1 each MISCELLANE DAILY PRN PRN Reason: Consult order Pharmacy Consult (Consult Rx Perform Med Rec) 1 each MISCELLANE ONCE PRN PRN Reason: Consult order Prazosin HCl (Prazosin Hcl 1 Mg Capsule) 2 mg PO BEDTIME [facility]; Protocol Quetiapine Fumarate (Quetiapine Fumarate 50 Mg Tablet) 50 mg PO BEDTIME JAY JAY Quetiapine Fumarate (Quetiapine Fumarate 100 Mg Tablet) 100 mg PO BEDTIME [facility] Sodium Chloride (0.9 % Sodium Chloride Flush 3 Ml Syringe) 3 ml IVFLUSH QSHIFT [facility] Last Admin: 05/14/23 09:03 Dose: Not Given Documented By: MARYSOL Non-Admin Reason: IV Running Labs 05/14/23 04:46 05/14/23 04:46 Labs: Laboratory Results - last 24 hr 05/13/23 05/13/23 05/13/23 19:32 19:32 19:32 MCV 84.1 MCH 27.6 MCHC 32.8 RDW 13.0 Plt Count 204 MPV 9.9 Immature Gran % (Auto) 0.4 Neut % (Auto) 55.7 Lymph % (Auto) 33.4 [place] % (Auto) 9.3 Eos % (Auto) 0.9 Baso % (Auto) 0.3 Lymph # (Auto) 5.1 H [place] # (Auto) 1.4 H Eos # (Auto) 0.1 Baso # (Auto) 0.1 Abs Immat Gran (auto) 0.06 H Absolute Neuts (auto) 8.5 H Absolute Nucleated RBC 0.000 Nucleated RBC % (auto) 0.0 Smear Tech's Comments VERIFIED ESR 70 H Anion Gap 15 Estim Creat Clear Calc 96.9 Estimated GFR > 60 POC Glucose Random Glucose 95 Lactic Acid Calcium 10.2 Total Bilirubin 0.5 AST 23 ALT 30 Alkaline Phosphatase 94 C-Reactive Protein 5.85 H Total Protein 8.8 H Albumin 4.3 Urine Opiates Screen Urine Fentanyl Screen Ur Barbiturates Screen Ur Phencyclidine Scrn Ur Amphetamines Screen U Benzodiazepines Scrn Urine Cocaine Screen U Marijuana (THC) Screen 05/13/23 05/14/23 05/14/23 19:32 04:46 04:46 MCV 85.8 MCH 27.6 MCHC 32.2 RDW 12.9 Plt Count 197 MPV 10.2 Immature Gran % (Auto) 0.5 H Neut % (Auto) 46.6 Lymph % (Auto) 38.2 [place] % (Auto) 12.8 H Eos % (Auto) 1.5 Baso % (Auto) 0.4 Lymph # (Auto) 5.0 H [place] # (Auto) 1.7 H Eos # (Auto) 0.2 Baso # (Auto) 0.1 Abs Immat Gran (auto) 0.06 H Absolute Neuts (auto) 6.1 Absolute Nucleated RBC 0.000 Nucleated RBC % (auto) 0.0 Smear Tech's Comments VERIFIED ESR Anion Gap 10 L Estim Creat Clear Calc 105.6 Estimated GFR > 60 POC Glucose Random Glucose 115 Lactic Acid 0.9 Calcium 9.3 D Total Bilirubin AST ALT Alkaline Phosphatase C-Reactive Protein Total Protein Albumin Urine Opiates Screen Urine Fentanyl Screen Ur Barbiturates Screen Ur Phencyclidine Scrn Ur Amphetamines Screen U Benzodiazepines Scrn Urine Cocaine Screen U Marijuana (THC) Screen 05/14/23 05/14/23 05/14/23 07:33 10:19 12:27 MCV MCH MCHC RDW Plt Count MPV Immature Gran % (Auto) Neut % (Auto) Lymph % (Auto) [place] % (Auto) Eos % (Auto) Baso % (Auto) Lymph # (Auto) [place] # (Auto) Eos # (Auto) Baso # (Auto) Abs Immat Gran (auto) Absolute Neuts (auto) Absolute Nucleated RBC Nucleated RBC % (auto) Smear Tech's Comments ESR Anion Gap Estim Creat Clear Calc Estimated GFR POC Glucose 120 H 91 Random Glucose Lactic Acid Calcium Total Bilirubin AST ALT Alkaline Phosphatase C-Reactive Protein Total Protein Albumin Urine Opiates Screen Not Detected Urine Fentanyl Screen Not Detected Ur Barbiturates Screen Not Detected Ur Phencyclidine Scrn Not Detected Ur Amphetamines Screen Not Detected U Benzodiazepines Scrn Not Detected Urine Cocaine Screen Not Detected U Marijuana (THC) Screen Not Detected Assessment and Plan (1) Abscess of forearm, right: Status: Acute (2) Cellulitis: Status: Acute (3) Polysubstance abuse: Status: Acute (4) Non-insulin dependent type 2 diabetes mellitus: Status: Acute Plan 52-year-old male with pertinent history of IV poly substance use disorder, [id number] diabetes mellitus, mood disorder, tobacco use disorder who presents to the emergency department for evaluation of right arm pain, swelling redness. #.? Sepsis due to right arm cellulitis and abscess.? continue IV vanco and Zosyn started IV morphine, Tylenol,apply warm compresses WBC trending down, normal lactic acid, follow blood cultures seen by General surgery they recommended orthopedic consultation therefore patient seen by Dr. Sepulvead he recommend warm compresses,NPO and I&D, #.? Poly substance use disorder.? Patient denies current use of IV drugs, urine toxicology showed no drugs. #.? Tobacco use disorder. counseling done, declined nicotine patch #.? Nyo-dofcstu-ejopsisdt diabetes mellitus.? diabetic diet, Initiating Accu- Cheks with sliding scale insulin. #.? Mood disorder.? Continue home mood stabilizers including Seroquel, Neurontin and prazosin DVT prophylaxis:? Lovenox Full code patient will require continued inpatient hospitalization for right upper extremity cellulitis requiring IV antibiotics and abscess drainage. Time Spent With Patient Time: Total time managing care of this patient today ____ minutes. Quality Stroke Does the patient have a stroke diagnosis?: No VTE Prior VTE?: No VTE Risk Level:: Medical - moderate - high VTE Device Contraindication: Treatment Not Indicated VTE Drug Contraindication: N/A - Med Ordered
--- NOTE | 2023-05-14 13:10 | PC.NURSE ---
report given to [facility] nurse.
[2023-05-14 14:04] VITALS: BP 127/82; PULSE 80; RESP 16; TEMP 36; O2SAT 97
[2023-05-14] MEDS: methADONE HCl 20 MG/2 ML ORAL.CONC 90 MG PO (14:15)
[2023-05-14 15:01] VITALS: BP 125/71; PULSE 74; RESP 18; TEMP 36.3; O2SAT 97
[2023-05-14 16:23] LABS: Glucose, Whole Blood 103 mg/dL (60-115)
[2023-05-14] MEDS: Acetaminophen 325 MG TABLET 650 MG PO (18:13)
[2023-05-14 19:22] VITALS: BP 122/74; PULSE 86; RESP 20; TEMP 36; O2SAT 93
[2023-05-14 20:09] LABS: Glucose, Whole Blood 145 mg/dL (60-115)
[2023-05-14] MEDS: QUEtiapine Fumarate 50 MG TABLET PO (20:37)
[2023-05-14] MEDS: Prazosin HCL 1 MG CAPSULE 2 MG PO (20:38)
[2023-05-14] MEDS: Enoxaparin Sodium 40 MG/0.4 ML SYRINGE SUBCUT (20:38)
[2023-05-14] MEDS: QUEtiapine Fumarate 100 MG TABLET PO (20:38)
[2023-05-14] MEDS: Melatonin 3 MG TABLET 6 MG PO (20:39)
[2023-05-15] VITALS (10 sets, daily range): BP systolic 112–135; BP diastolic 56–89; PULSE 74–85; RESP 16–19; TEMP 36.1–36.8; O2SAT 94–98
[2023-05-15] MEDS: Piperacillin Sodium/Tazobactam 4.5 GM in 0.9 % Sodium Chloride 100 ML IV ×3 (01:15→18:22)
[2023-05-15 07:26] LABS: Vancomycin Trough 9.8 mcg/mL (10.0-20.0)
[2023-05-15 07:28] LABS: Creatinine Clr Calc Pharmacy 115.9; Estimated Glomerular Filt Rate > 60
--- NOTE | 2023-05-15 07:37 | PM.PNORT ---
Subjective Subjective Date of Service: 05/15/23 Interval history: Patient resting comfortably in bed. No overnight events. Continued pain and swelling of RUE. Pain is managed. No additional complaints. Physical Exam Vital Signs: Vital Signs: Last Vital Signs Temp 98.1 F 05/15/23 03:26 Pulse 82 05/15/23 03:26 Resp 18 05/15/23 03:26 BP 112/62 05/15/23 03:26 Pulse Ox 97 05/15/23 03:26 O2 Del Method Room Air 05/15/23 03:26 BMI result Body Mass Index 28.1 Extrem: Other: Right volar forearm ~ 5 -8 cm distal to elbow there is a fluctuant abcess with mild drainage. Surrounding area is erythematous but soft. No pain with elbow ROM or finger ROM Procedures Date of Service Date of Service: 05/15/23 Progress Note: A&P Assessment and plan (1) Abscess of forearm, right: Status: Acute Assessment and Plan: Plan for OR I&D later today Keep NPO Pain management as appropriate Dressing changes as needed Encourage hand and elbow ROM (2) Cellulitis: Status: Acute (3) Polysubstance abuse: Status: Acute (4) Non-insulin dependent type 2 diabetes mellitus: Status: Acute (5) IV drug user: Status: Acute (6) Mood disorder: Status: Acute Time Spent With Patient Time: Total time managing care of this patient today ____ minutes. Quality Stroke Does the patient have a stroke diagnosis?: No VTE Prior VTE?: No VTE Risk Level:: Medical - moderate - high VTE Device Contraindication: Treatment Not Indicated VTE Drug Contraindication: N/A - Med Ordered
[2023-05-15 07:39] LABS: Glucose, Whole Blood 99 mg/dL (60-115)
[2023-05-15] MEDS: methADONE HCl 20 MG/2 ML ORAL.CONC 90 MG PO (08:10)
[2023-05-15] MEDS: Gabapentin 300 MG CAPSULE PO ×3 (08:10→22:25)
[2023-05-15] MEDS: 0.9 % Sodium Chloride Flush 3 ML SYRINGE IVFLUSH ×2 (08:11→21:38)
--- NOTE | 2023-05-15 09:23 | PM.EVENT ---
Event Note Date of Service: 05/15/23 Event Note: Addiction consult placed for patient with history of opiate use Currently admitted with cellulitis of forearm Chart reviewed and patient seen by pole shaver helper. Patient engaged in OUD treatment via methadone. Dose verified and administered UDS negative and patient denies any substance use No further intervention or follow up indicated at this time Time Spent With Patient Time: Total time managing care of this patient today ____ minutes.
[2023-05-15] MEDS: vancomycin HCL 1,250 MG in 0.9 % Sodium Chloride 250 ML 166.67 MG IV ×2 (09:37→22:31)
[2023-05-15 11:24] LABS: Glucose, Whole Blood 104 mg/dL (60-115)
[2023-05-15 13:51] LABS: Glucose, Whole Blood 98 mg/dL (60-115)
--- NOTE | 2023-05-15 14:52 | P.BOP_ITS ---
Brief Operative Note Date of Service: 05/15/23 Pre-op diagnosis: right forearm abcess Post-op diagnosis: same Procedure: Right forearm I&D Implants: none Surgeon: Forrest Sepulveda MD Anesthesia: GLMA Was an Sheet Metal Duct Worker Supervisor used for this Procedure?: Yes Sheet Metal Duct Worker Supervisor: Angie Vargas Estimated blood loss (mL): 50 IV fluids (mL): 500 Pathology: none sent Condition: stable Disposition: PACU
--- NOTE | 2023-05-15 15:07 | P.CONAN_ITS ---
HPI - Anesthesia Eval Consult details Narrative: 52-year-old male with a history of IV drug use presenting with a right forearm abscess for I and D PMFSH Active Problems Active Problems: All Active Problems (Updated 05/14/23 @ 02:06 by Zack Go MD) Abscess of forearm, right (Acute) Cellulitis (Acute) Polysubstance abuse (Acute) Non-insulin dependent type 2 diabetes mellitus (Acute) IV drug user (Acute) Mood disorder (Acute) Past Medical History Medical History IV drug user Mood disorder Non-insulin dependent type 2 diabetes mellitus Polysubstance abuse Family History Family history of problems with anesthesia: No Surgical History History of Problems with Anesthesia: No Social History Social History Household Members: Other Housing: Other Housing Other:: Transitional Housing Do you presently have visiting nurse or other home services: No Alcohol intake: never Patient Tobacco Use Status: Current everyday Tobacco user Tobacco use type: Cigarette Cigarette Packs Per Day: 1 Cigarettes Per Day: 20.0 Years Smoked: 40 e-Cigarette/Vaping Use: Currently Using Substance Use Type: Crack/Cocaine, Former Substance User and Heroin service: No Meds Allergies Allergy/AdvReac Type Severity Reaction Status Date / Time cephalexin [From Keflex] Allergy Hives Verified 05/13/23 17:46 Active Medications: Current Medications Acetaminophen (Acetaminophen 325 Mg Tablet) 650 mg PO Q6H PRN PRN Reason: Pain, Mild (Pain Scale 1-3) Last Admin: 05/14/23 18:13 Dose: 650 mg Dextrose (Dextrose 50 % 25 Gm/50 Ml Syringe) 25 gm IVPUSH Q15M PRN; Protocol PRN Reason: per Hypoglycemia Standing Ord. Enoxaparin Sodium (Enoxaparin Sodium 40 Mg/0.4 Ml Syringe) 40 mg SUBCUT Q24H JAY JAY Last Admin: 05/14/23 20:38 Dose: 40 mg Gabapentin (Gabapentin 300 Mg Capsule) 300 mg PO TID JAY JAY Last Admin: 05/15/23 08:10 Dose: 300 mg Glucose (Glucose Gel 15 Gm Gel..Gram.) 15 gm PO Q15M PRN; Protocol PRN Reason: per Hypoglycemia Standing Ord. Hydromorphone HCl (Hydromorphone Hcl 0.5 Mg/0.5 Ml Syringe) 0.25 mg IVPUSH Q5M PRN; Protocol PRN Reason: Pain, Severe (Pain Scale 7-10) Piperacillin Sod/Tazobactam (Sod 4.5 gm/ Sodium Chloride) 100 mls @ 200 mls/hr IV Q6H [facility] Last Infusion: 05/15/23 09:42 Dose: Infused Vancomycin HCl 1,250 mg/ (Sodium Chloride) 250 mls @ 166.667 mls/hr IV Q12H [facility] Last Infusion: 05/15/23 11:33 Dose: Infused Lactated Ringer's (Lr) 1,000 mls @ 50 mls/hr IVCONT .Q20H JAY JAY Acetaminophen (Ofirmev) 1,000 mg in 100 mls @ 400 mls/hr IV ONCE ONE Stop: 05/15/23 15:17 Insulin Human Lispro (Insulin Lispro 100 Unit/Ml 3 Ml Vial) 0 unit SUBCUT QIDACHS [facility]; Protocol Last Admin: 05/15/23 11:27 Dose: Not Given Ketorolac Tromethamine (Ketorolac Tromethamine 30 Mg/Ml Vial) 30 mg IVPUSH ONCE ONE Stop: 05/15/23 15:04 Melatonin (Melatonin 3 Mg Tablet) 6 mg PO BEDTIME PRN PRN Reason: Insomnia Last Admin: 05/14/23 20:39 Dose: 6 mg Methadone HCl (Methadone Hcl 20 Mg/2 Ml Oral.Conc) 90 mg PO DAILY [facility] Last Admin: 05/15/23 08:10 Dose: 90 mg Morphine Sulfate (Morphine Sulfate 4 Mg/Ml Cartridge) 4 mg IVPUSH Q4H PRN; Protocol PRN Reason: Pain, Severe (Pain Scale 7-10) Ondansetron HCl (Ondansetron Hcl 4 Mg/2 Ml Vial) 4 mg IVPUSH Q8H PRN PRN Reason: Nausea and Vomiting Ondansetron HCl (Ondansetron Hcl 4 Mg/2 Ml Vial) 4 mg IVPUSH ONCE PRN PRN Reason: Nausea and Vomiting Pharmacy Consult (Consult Rx Vancomycin Dosing) 1 each MISCELLANE DAILY PRN PRN Reason: Consult order Prazosin HCl (Prazosin Hcl 1 Mg Capsule) 2 mg PO BEDTIME [facility]; Protocol Last Admin: 05/14/23 20:38 Dose: 2 mg Quetiapine Fumarate (Quetiapine Fumarate 50 Mg Tablet) 50 mg PO BEDTIME [facility] Last Admin: 05/14/23 20:37 Dose: 50 mg Quetiapine Fumarate (Quetiapine Fumarate 100 Mg Tablet) 100 mg PO BEDTIME [facility] Last Admin: 05/14/23 20:38 Dose: 100 mg Sodium Chloride (0.9 % Sodium Chloride Flush 3 Ml Syringe) 3 ml IVFLUSH QSHIFT [facility] Last Admin: 05/15/23 08:11 Dose: 3 ml Home Medications Medication Instructions Recorded Confirmed Last Taken Type gabapentin 300 mg capsule 300 mg PO TID 05/13/23 05/13/23 Unknown History (Neurontin) prazosin 2 mg capsule 2 mg PO BEDTIME 05/13/23 05/13/23 Unknown History quetiapine 100 mg tablet (Seroquel) 100 mg PO BEDTIME 05/13/23 05/13/23 Unknown History quetiapine 50 mg tablet (Seroquel) 50 mg PO BEDTIME 05/13/23 05/13/23 Unknown History methadone 10 mg/mL oral 90 mg PO DAILY 05/14/23 05/14/23 05/13/23 History concentrate (Methadone Intensol) Exam Exam Date and Time: May 15, 2023 1507 Height,Weight and Vital Signs: Height 5 ft 9 in Weight 190 lb Last Vital Signs Temp 97 F 05/15/23 14:56 Pulse 80 05/15/23 14:56 Resp 16 05/15/23 14:56 BP 122/75 05/15/23 14:56 Pulse Ox 97 05/15/23 14:56 O2 Del Method Room Air 05/15/23 14:56 Pertinent Lab Results Pertinent Lab Results: Laboratory Tests 05/13/23 05/13/23 05/13/23 19:32 19:32 19:32 WBC 15.2 H RBC 4.21 L Hgb 11.6 L Hct 35.4 L MCV 84.1 MCH 27.6 MCHC 32.8 RDW 13.0 Plt Count 204 MPV 9.9 Immature Gran % (Auto) 0.4 Neut % (Auto) 55.7 Lymph % (Auto) 33.4 Hubbard % (Auto) 9.3 Eos % (Auto) 0.9 Baso % (Auto) 0.3 Lymph # (Auto) 5.1 H Hubbard # (Auto) 1.4 H Eos # (Auto) 0.1 Baso # (Auto) 0.1 Abs Immat Gran (auto) 0.06 H Absolute Neuts (auto) 8.5 H Absolute Nucleated RBC 0.000 Nucleated RBC % (auto) 0.0 Smear Tech's Comments VERIFIED ESR 70 H Sodium 140 Potassium 4.4 Chloride 103 Carbon Dioxide 26 Anion Gap 15 BUN 14 Creatinine 0.98 Estim Creat Clear Calc 96.9 Estimated GFR > 60 POC Glucose Random Glucose 95 Lactic Acid Calcium 10.2 Total Bilirubin 0.5 AST 23 ALT 30 Alkaline Phosphatase 94 C-Reactive Protein 5.85 H Total Protein 8.8 H Albumin 4.3 Vancomycin Trough Urine Opiates Screen Urine Fentanyl Screen Ur Barbiturates Screen Ur Phencyclidine Scrn Ur Amphetamines Screen U Benzodiazepines Scrn Urine Cocaine Screen U Marijuana (THC) Screen 05/13/23 05/14/23 05/14/23 19:32 04:46 04:46 WBC 13.0 H RBC 3.87 L Hgb 10.7 L Hct 33.2 L MCV 85.8 MCH 27.6 MCHC 32.2 RDW 12.9 Plt Count 197 MPV 10.2 Immature Gran % (Auto) 0.5 H Neut % (Auto) 46.6 Lymph % (Auto) 38.2 Hubbard % (Auto) 12.8 H Eos % (Auto) 1.5 Baso % (Auto) 0.4 Lymph # (Auto) 5.0 H Hubbard # (Auto) 1.7 H Eos # (Auto) 0.2 Baso # (Auto) 0.1 Abs Immat Gran (auto) 0.06 H Absolute Neuts (auto) 6.1 Absolute Nucleated RBC 0.000 Nucleated RBC % (auto) 0.0 Smear Tech's Comments VERIFIED ESR Sodium 139 Potassium 3.8 Chloride 107 Carbon Dioxide 26 Anion Gap 10 L BUN 13 Creatinine 0.90 Estim Creat Clear Calc 105.6 Estimated GFR > 60 POC Glucose Random Glucose 115 Lactic Acid 0.9 Calcium 9.3 D Total Bilirubin AST ALT Alkaline Phosphatase C-Reactive Protein Total Protein Albumin Vancomycin Trough Urine Opiates Screen Urine Fentanyl Screen Ur Barbiturates Screen Ur Phencyclidine Scrn Ur Amphetamines Screen U Benzodiazepines Scrn Urine Cocaine Screen U Marijuana (THC) Screen 08/21/23 08/21/23 08/21/23 07:33 10:19 12:27 WBC RBC Hgb Hct MCV MCH MCHC RDW Plt Count MPV Immature Gran % (Auto) Neut % (Auto) Lymph % (Auto) Hubbard % (Auto) Eos % (Auto) Baso % (Auto) Lymph # (Auto) Hubbard # (Auto) Eos # (Auto) Baso # (Auto) Abs Immat Gran (auto) Absolute Neuts (auto) Absolute Nucleated RBC Nucleated RBC % (auto) Smear Tech's Comments ESR Sodium Potassium Chloride Carbon Dioxide Anion Gap BUN Creatinine Estim Creat Clear Calc Estimated GFR POC Glucose 120 H 91 Random Glucose Lactic Acid Calcium Total Bilirubin AST ALT Alkaline Phosphatase C-Reactive Protein Total Protein Albumin Vancomycin Trough Urine Opiates Screen Not Detected Urine Fentanyl Screen Not Detected Ur Barbiturates Screen Not Detected Ur Phencyclidine Scrn Not Detected Ur Amphetamines Screen Not Detected U Benzodiazepines Scrn Not Detected Urine Cocaine Screen Not Detected U Marijuana (THC) Screen Not Detected 05/14/23 05/14/23 05/15/23 16:12 20:04 06:49 WBC RBC Hgb Hct MCV MCH MCHC RDW Plt Count MPV Immature Gran % (Auto) Neut % (Auto) Lymph % (Auto) Hubbard % (Auto) Eos % (Auto) Baso % (Auto) Lymph # (Auto) Hubbard # (Auto) Eos # (Auto) Baso # (Auto) Abs Immat Gran (auto) Absolute Neuts (auto) Absolute Nucleated RBC Nucleated RBC % (auto) Smear Tech's Comments ESR Sodium Potassium Chloride Carbon Dioxide Anion Gap BUN Creatinine 0.82 Estim Creat Clear Calc 115.9 Estimated GFR > 60 POC Glucose 103 145 H Random Glucose Lactic Acid Calcium Total Bilirubin AST ALT Alkaline Phosphatase C-Reactive Protein Total Protein Albumin Vancomycin Trough Urine Opiates Screen Urine Fentanyl Screen Ur Barbiturates Screen Ur Phencyclidine Scrn Ur Amphetamines Screen U Benzodiazepines Scrn Urine Cocaine Screen U Marijuana (THC) Screen 05/15/23 05/15/23 05/15/23 06:49 07:27 11:20 WBC RBC Hgb Hct MCV MCH MCHC RDW Plt Count MPV Immature Gran % (Auto) Neut % (Auto) Lymph % (Auto) Hubbard % (Auto) Eos % (Auto) Baso % (Auto) Lymph # (Auto) Hubbard # (Auto) Eos # (Auto) Baso # (Auto) Abs Immat Gran (auto) Absolute Neuts (auto) Absolute Nucleated RBC Nucleated RBC % (auto) Smear Tech's Comments ESR Sodium Potassium Chloride Carbon Dioxide Anion Gap BUN Creatinine Estim Creat Clear Calc Estimated GFR POC Glucose 99 104 Random Glucose Lactic Acid Calcium Total Bilirubin AST ALT Alkaline Phosphatase C-Reactive Protein Total Protein Albumin Vancomycin Trough 9.8 L Urine Opiates Screen Urine Fentanyl Screen Ur Barbiturates Screen Ur Phencyclidine Scrn Ur Amphetamines Screen U Benzodiazepines Scrn Urine Cocaine Screen U Marijuana (THC) Screen 05/15/23 13:42 WBC RBC Hgb Hct MCV MCH MCHC RDW Plt Count MPV Immature Gran % (Auto) Neut % (Auto) Lymph % (Auto) Hubbard % (Auto) Eos % (Auto) Baso % (Auto) Lymph # (Auto) Hubbard # (Auto) Eos # (Auto) Baso # (Auto) Abs Immat Gran (auto) Absolute Neuts (auto) Absolute Nucleated RBC Nucleated RBC % (auto) Smear Tech's Comments ESR Sodium Potassium Chloride Carbon Dioxide Anion Gap BUN Creatinine Estim Creat Clear Calc Estimated GFR POC Glucose 98 Random Glucose Lactic Acid Calcium Total Bilirubin AST ALT Alkaline Phosphatase C-Reactive Protein Total Protein Albumin Vancomycin Trough Urine Opiates Screen Urine Fentanyl Screen Ur Barbiturates Screen Ur Phencyclidine Scrn Ur Amphetamines Screen U Benzodiazepines Scrn Urine Cocaine Screen U Marijuana (THC) Screen Airway Mallampati Class: II TM Dist: >3cm Neck ROM: Full Loose/Missing/Broken Teeth: Yes (Poor dentition) Assessment and Plan Assessment Anesthesia Assessment: Anesthesia Plan Discussed and Chart Reviewed Final Anesthetic Review Family History of Problems with Anesthesia: No History of Problems with Anesthesia: No NPO: Yes ASA Class: III Final Preanesthetic Review: No Changes in Pt Med Stat, Meds/Allgs Chart Reviewed, Consent Obtained/Reviewed and Anes Risks/Benef Reviewed Patient Risk: Intermediate Procedure Risk: Low Anesthetic Plan Anesthetic Plan: GA Disposition: Standard PACU
--- NOTE | 2023-05-15 16:00 | HO.PM.IMPN ---
Subjective Subjective Date of Service: 05/15/23 Interval History: Complaining of persistent redness swelling and pain right forearm is NPO for I&D is scheduled for this afternoon by orthopedic surgery, denies fever, no chills, no nausea no vomiting no abdominal pain no other acute issues overnight. Review of Systems All other system reviewed and negative. Physical Exam Vital Signs: Vital Signs: Last Vital Signs Temp 97.6 F 05/15/23 15:44 Pulse 74 05/15/23 15:44 Resp 18 05/15/23 15:44 BP 135/89 05/15/23 15:44 Pulse Ox 98 05/15/23 15:44 O2 Del Method Room Air 05/15/23 15:44 BMI result Body Mass Index 28.1 Const: Other: General? awake alert x3, in no acute distress.? Neck? supple no JVD. CVS? regular rate rhythm, Respiratory lungs clear to auscultation, no respiratory distress, no wheeze, no rhonchi. Gastrointestinal abdomen soft, non tender, bowel sounds audible,? no guarding , no rigidity. Lower Extremities no edema. Neuro nonfocal right forearm? diffuse swelling, redness, warmth, tenderness to palpation, abscess right dorsal upper forearm below the elbow, With purulent drainage. Skin no rash psych appropriate affect Objective Data Active Medications Acetaminophen (Acetaminophen 325 Mg Tablet) 650 mg PO Q6H PRN PRN Reason: Pain, Mild (Pain Scale 1-3) Last Admin: 05/14/23 18:13 Dose: 650 mg Documented By: LEÓN Dextrose (Dextrose 50 % 25 Gm/50 Ml Syringe) 25 gm IVPUSH Q15M PRN; Protocol PRN Reason: per Hypoglycemia Standing Ord. Enoxaparin Sodium (Enoxaparin Sodium 40 Mg/0.4 Ml Syringe) 40 mg SUBCUT Q24H [facility] Last Admin: 05/14/23 20:38 Dose: 40 mg Documented By: DHRUV Gabapentin (Gabapentin 300 Mg Capsule) 300 mg PO TID [facility] Last Admin: 05/15/23 08:10 Dose: 300 mg Documented By: COTEMA Glucose (Glucose Gel 15 Gm Gel..Gram.) 15 gm PO Q15M PRN; Protocol PRN Reason: per Hypoglycemia Standing Ord. Hydromorphone HCl (Hydromorphone Hcl 0.5 Mg/0.5 Ml Syringe) 0.25 mg IVPUSH Q5M PRN; Protocol PRN Reason: Pain, Severe (Pain Scale 7-10) Piperacillin Sod/Tazobactam (Sod 4.5 gm/ Sodium Chloride) 100 mls @ 200 mls/hr IV Q6H [facility] Last Infusion: 05/15/23 09:42 Dose: 0 mls/hr Documented By: MARIA TERESA Vancomycin HCl 1,250 mg/ (Sodium Chloride) 250 mls @ 166.667 mls/hr IV Q12H [facility] Last Infusion: 05/15/23 11:33 Dose: 0 mls/hr Documented By: COTEMA Lactated Ringer's (Lr) 1,000 mls @ 50 mls/hr IVCONT .Q20H [facility] Insulin Human Lispro (Insulin Lispro 100 Unit/Ml 3 Ml Vial) 0 unit SUBCUT QIDACHS [facility]; Protocol Last Admin: 05/15/23 11:27 Dose: Not Given Documented By: ARCHIE Non-Admin Reason: No Insulin Coverage Melatonin (Melatonin 3 Mg Tablet) 6 mg PO BEDTIME PRN PRN Reason: Insomnia Last Admin: 05/14/23 20:39 Dose: 6 mg Documented By: DHRUV Methadone HCl (Methadone Hcl 20 Mg/2 Ml Oral.Conc) 90 mg PO DAILY [facility] Last Admin: 05/15/23 08:10 Dose: 90 mg Documented By: ARCHIE Morphine Sulfate (Morphine Sulfate 4 Mg/Ml Cartridge) 4 mg IVPUSH Q4H PRN; Protocol PRN Reason: Pain, Severe (Pain Scale 7-10) Ondansetron HCl (Ondansetron Hcl 4 Mg/2 Ml Vial) 4 mg IVPUSH Q8H PRN PRN Reason: Nausea and Vomiting Ondansetron HCl (Ondansetron Hcl 4 Mg/2 Ml Vial) 4 mg IVPUSH ONCE PRN PRN Reason: Nausea and Vomiting Pharmacy Consult (Consult Rx Vancomycin Dosing) 1 each MISCELLANE DAILY PRN PRN Reason: Consult order Prazosin HCl (Prazosin Hcl 1 Mg Capsule) 2 mg PO BEDTIME [facility]; Protocol Last Admin: 05/14/23 20:38 Dose: 2 mg Documented By: DHRUV Quetiapine Fumarate (Quetiapine Fumarate 50 Mg Tablet) 50 mg PO BEDTIME [facility] Last Admin: 05/14/23 20:37 Dose: 50 mg Documented By: DHRUV Quetiapine Fumarate (Quetiapine Fumarate 100 Mg Tablet) 100 mg PO BEDTIME [facility] Last Admin: 05/14/23 20:38 Dose: 100 mg Documented By: DHRUV Sodium Chloride (0.9 % Sodium Chloride Flush 3 Ml Syringe) 3 ml IVFLUSH QSHIFT [facility] Last Admin: 05/15/23 08:11 Dose: 3 ml Documented By: COTEMA Labs 05/14/23 04:46 05/15/23 06:49 Labs: Laboratory Results - last 24 hr 05/14/23 05/14/23 05/15/23 16:12 20:04 06:49 Estim Creat Clear Calc 115.9 Estimated GFR > 60 POC Glucose 103 145 H Vancomycin Trough 05/15/23 05/15/23 05/15/23 06:49 07:27 11:20 Estim Creat Clear Calc Estimated GFR POC Glucose 99 104 Vancomycin Trough 9.8 L 05/15/23 13:42 Estim Creat Clear Calc Estimated GFR POC Glucose 98 Vancomycin Trough Microbiology Microbiology Results: Microbiology 05/13/23 19:32 Blood Culture - Preliminary Blood - Venous No growth after 24 hours. 05/13/23 19:32 Blood Culture - Preliminary Blood - Venous No growth after 24 hours. Assessment and Plan (1) Abscess of forearm, right: Status: Acute (2) Cellulitis: Status: Acute (3) Polysubstance abuse: Status: Acute (4) Non-insulin dependent type 2 diabetes mellitus: Status: Acute Plan 52-year-old male with pertinent history of IV poly substance use disorder, [id number] diabetes mellitus, mood disorder, tobacco use disorder who presents to the emergency department for evaluation of right arm pain, swelling redness. #.? Sepsis due to right arm cellulitis and abscess.? continue IV vanco and Zosyn started , cont. IV morphine, Tylenol, WBC trending down, normal lactic acid, blood cultures x2 negative times 24 hours underwent I&D in OR by Dr. Sepulveda this a.m. no specimen sent for cultures follow CBC and clinical course if looking better will discharge home on by mouth Augmentin for total 7 days. #.? Poly substance use disorder.? denies current use of IV drugs, urine toxicology showed no drugs. continue methadone. #.? Tobacco use disorder. counseling done, declined nicotine patch. #.? Qly-gtrhhdp-meiuqqsfh diabetes mellitus.? diabetic diet, Stable blood sugars, on Accu-Cheks with sliding scale insulin. #.? Mood disorder.? Continue home mood stabilizers including Seroquel, Neurontin and prazosin DVT prophylaxis:? Lovenox Full code patient will require continued inpatient hospitalization for right upper extremity cellulitis requiring IV antibiotics. Time Spent With Patient Time: Total time managing care of this patient today ____ minutes. Quality Stroke Does the patient have a stroke diagnosis?: No VTE Prior VTE?: No VTE Risk Level:: Medical - moderate - high VTE Device Contraindication: Treatment Not Indicated VTE Drug Contraindication: N/A - Med Ordered
[2023-05-15] MEDS: Acetaminophen 1,000 MG/100 ML PIGGYBACK 400 MG IV (16:11)
[2023-05-15] MEDS: Ketorolac Tromethamine 30 MG/ML VIAL IVPUSH (16:12)
[2023-05-15] MEDS: Morphine Sulfate 4 MG/ML CARTRIDGE IVPUSH (16:45)
[2023-05-15 16:48] LABS: Glucose, Whole Blood 77 mg/dL (60-115)
[2023-05-15] MEDS: Acetaminophen 325 MG TABLET 650 MG PO (18:27)
[2023-05-15 20:46] LABS: Glucose, Whole Blood 132 mg/dL (60-115)
[2023-05-15] MEDS: QUEtiapine Fumarate 100 MG TABLET PO (22:25)
[2023-05-15] MEDS: Prazosin HCL 1 MG CAPSULE 2 MG PO (22:25)
[2023-05-15] MEDS: QUEtiapine Fumarate 50 MG TABLET PO (22:25)
[2023-05-15] MEDS: Enoxaparin Sodium 40 MG/0.4 ML SYRINGE SUBCUT (22:27)
[2023-05-16] MEDS: Acetaminophen 325 MG TABLET 650 MG PO ×2 (00:37→16:30)
[2023-05-16] MEDS: Morphine Sulfate 4 MG/ML CARTRIDGE IVPUSH ×3 (00:39→16:30)
[2023-05-16] MEDS: Piperacillin Sodium/Tazobactam 4.5 GM in 0.9 % Sodium Chloride 100 ML IV ×5 (00:44→23:39)
[2023-05-16] MEDS: Throat Lozenge, Medicated LOZENGE 1 LOZENGE MUCOUS MEM ×2 (03:02→06:27)
[2023-05-16 03:04] VITALS: BP 121/71; PULSE 87; RESP 16; TEMP 36.3; O2SAT 96
[2023-05-16 07:12] LABS: Hematocrit 34.6 % (42.0-52.0); Hemoglobin 11.3 g/dl (14.0-18.0); Mean Corpuscular HGB Conc 32.7 g/dl (31.0-36.0); Mean Corpuscular Hemoglobin 27.6 pg (27.0-33.0); Mean Corpuscular Volume 84.4 fL (80.0-98.0); Mean Platelet Volume 9.6 fL (9.4-12.4); Platelet Count 216 X10*3/uL (160-400); Red Cell Distribution Width 12.7 % (11.0-16.0); White Blood Count 8.8 X10*3/uL (4.8-10.8)
--- NOTE | 2023-05-16 07:20 | PM.PNORT ---
Subjective Subjective Date of Service: 05/16/23 Interval history: POD1 s/p right dorsal forearm I&D. Pain is managed. No overnight events. No additional compalints. Physical Exam Vital Signs: Vital Signs: Last Vital Signs Temp 97.3 F 05/16/23 03:04 Pulse 87 05/16/23 03:04 Resp 16 05/16/23 03:04 BP 121/71 05/16/23 03:04 Pulse Ox 96 05/16/23 03:04 O2 Del Method Room Air 05/16/23 03:04 BMI result Body Mass Index 28.1 Const: General: cooperative, healthy appearing and no acute distress Resp: Effort & Inspection: normal respiratory effort and able to speak in complete sentences Cardio: Rate: regular rate Peripheral pulses: Peripheral pulses 2+ throughout GI: Palpation (GI): Soft to palpation Skin: Lesions: no lesions Rashes: no rashes Extrem: Other: Right forearm packing in place. Removed at bed side. New dressing placed. Erythema decreasing along the dorsal aspect of the forearm. NVI. Procedures Date of Service Date of Service: 05/16/23 Progress Note: A&P Assessment and plan (1) Abscess of forearm, right: Status: Acute (2) Cellulitis: Status: Acute (3) Polysubstance abuse: Status: Acute (4) Non-insulin dependent type 2 diabetes mellitus: Status: Acute (5) IV drug user: Status: Acute Plan Packing pulled at bedside New Dressing placed Dressing changes as needed Encourage gentle ROM of the elbow hand and wrist Time Spent With Patient Time: Total time managing care of this patient today ____ minutes. Quality Stroke Does the patient have a stroke diagnosis?: No VTE Prior VTE?: No VTE Risk Level:: Medical - moderate - high VTE Device Contraindication: Treatment Not Indicated VTE Drug Contraindication: N/A - Med Ordered
[2023-05-16 07:30] LABS: Glucose, Whole Blood 91 mg/dL (60-115)
[2023-05-16 07:31] LABS: Creatinine Clr Calc Pharmacy 114.5; Estimated Glomerular Filt Rate > 60
[2023-05-16 07:35] VITALS: BP 131/84; PULSE 84; RESP 18; TEMP 36.1; O2SAT 99
--- NOTE | 2023-05-16 07:47 | HE.PHANOTE ---
Re: vanco dosing Renal function stable. Trough still low at 14.0 after 3 days of treatment. Loading dose was slightly low at only 17 mg/kg so will increase dose to 1500 q12 to get pt to therapeutic level. Expected trough will be 15.8 and auc 594. May need to decrease dose again, will recheck level 05/17 @0700.
[2023-05-16] MEDS: methADONE HCl 20 MG/2 ML ORAL.CONC 90 MG PO (09:09)
[2023-05-16] MEDS: Gabapentin 300 MG CAPSULE PO ×3 (09:12→20:16)
[2023-05-16] MEDS: 0.9 % Sodium Chloride Flush 3 ML SYRINGE IVFLUSH ×3 (09:12→20:16)
[2023-05-16] MEDS: vancomycin HCL 1,500 MG in 0.9 % Sodium Chloride 500 ML 333.33 MG IV ×2 (09:13→20:16)
--- NOTE | 2023-05-16 09:43 | P.OP_ITS ---
Operative Note Operative Note Date of Service: 05/15/23 Narrative: Date of Service: 05/15/23 Pre-op diagnosis: right forearm abcess Post-op diagnosis: same Procedure: Right forearm I&D Implants: none Surgeon: Forrest Sepulveda MD Anesthesia: GLMA Was an Concrete Batcher used for this Procedure?: Yes Concrete Batcher: Angie Vargas Estimated blood loss (mL): 50 IV fluids (mL): 500 Pathology: none sent Condition: stable Disposition: PACU Patient was brought to the operating room and placed supine on the surgical table. He was prepped and draped in standard sterile fashion and a time out was called to identify proper site, proper procedure and IV antibiotics per weight were administered. I benag by making a 1 cm piter incision through the head of the abcess location over the unlar border of the proximal arm ~10 cm distal to the olecranon. There was immediate expression of purulence. There was abundant necrotic material but no tracking into deep structures. The volar tissues were not involved and there was scarring and fibrous tissue between the skin and extensor wad. I debrided the wound with a currette and a rongeur and irrigated copiously with pulse lavage. There was a 1 cm x 1 cm loss of skin . I debrided the edges of the necrotic area and placed a kerlex packing. Sterile dressing were applied and the patient was awakened from anesthesia. There were no known complications.
[2023-05-16 11:29] LABS: Glucose, Whole Blood 116 mg/dL (60-115)
--- NOTE | 2023-05-16 13:13 | MHC.CM.PN ---
Addendum entered by Paula Lal 05/16/23 16:27: No return call from [facility] received. Original Note: Met with patient for discharge planning. He plans to return to [facility] on [facility] at Discharge. He will need Methadone set up and a last dose letter at sd. Prior to hospitalization he received Methadone from [address]. A call was placed by this designer/writer. [facility] stated that the pt was Guest dosing and not a permanent client. T/W called [facility]; which was instructed by [facility]. [facility] stated that Intake on [facility] set him up previously, and will need set him up again. Transferred to intake. A detailed VM was left with Contact info for . A JERZY form was brought to the patient for signature. He stated that he is already set up for permanent dosing at [facility]. He called his web editor to verify. He left a VM. T/W will speak with [facility] to confirm or set up Methadone.
--- NOTE | 2023-05-16 13:14 | P.PNIM_ITS ---
Subjective Subjective Date of Service: 05/16/23 Interval History: sepsis Review of Systems arm pain and rom improving Physical Exam Vital Signs: Vital Signs: Last Vital Signs Temp 96.9 F 05/16/23 07:35 Pulse 84 05/16/23 07:35 Resp 18 05/16/23 07:35 BP 131/84 05/16/23 07:35 Pulse Ox 99 05/16/23 07:35 O2 Del Method Room Air 05/16/23 07:35 BMI result Body Mass Index 28.1 CVS? regular rate rhythm Respiratory lungs clear to auscultation, no wheeze, no rhonchi. Gastrointestinal abdomen soft, non tender, bowel sounds audible,? no guarding , no rigidity. right forearm? diffuse swelling, redness, warmth, tenderness to palpation- improving somewhat ,moves right extermity better. Lower Extremities no edema.Skin no rash Neuro nonfocal psych appropriate affect Objective Data Active Medications Acetaminophen (Acetaminophen 325 Mg Tablet) 650 mg PO Q6H PRN PRN Reason: Pain, Mild (Pain Scale 1-3) Last Admin: 05/16/23 00:37 Dose: 650 mg Documented By: LXEI Benzocaine (Throat Lozenge, Medicated Lozenge) 1 lozenge MUCOUS MEM Q2H PRN PRN Reason: Sore Throat Last Admin: 05/16/23 06:27 Dose: 1 lozenge Documented By: LEXI Dextrose (Dextrose 50 % 25 Gm/50 Ml Syringe) 25 gm IVPUSH Q15M PRN; Protocol PRN Reason: per Hypoglycemia Standing Ord. Enoxaparin Sodium (Enoxaparin Sodium 40 Mg/0.4 Ml Syringe) 40 mg SUBCUT Q24H [facility] Last Admin: 05/15/23 22:27 Dose: 40 mg Documented By: LEXI Gabapentin (Gabapentin 300 Mg Capsule) 300 mg PO TID [facility] Last Admin: 05/16/23 09:12 Dose: 300 mg Documented By: KAYLEE Glucose (Glucose Gel 15 Gm Gel..Gram.) 15 gm PO Q15M PRN; Protocol PRN Reason: per Hypoglycemia Standing Ord. Hydromorphone HCl (Hydromorphone Hcl 0.5 Mg/0.5 Ml Syringe) 0.25 mg IVPUSH Q5M PRN; Protocol PRN Reason: Pain, Severe (Pain Scale 7-10) Piperacillin Sod/Tazobactam (Sod 4.5 gm/ Sodium Chloride) 100 mls @ 200 mls/hr IV Q6H [facility] Last Infusion: 05/16/23 12:31 Dose: 0 mls/hr Documented By: KAYLEE Vancomycin HCl 1,500 mg/ (Sodium Chloride) 500 mls @ 333.333 mls/hr IV Q12H [facility] Last Infusion: 05/16/23 11:15 Dose: 0 mls/hr Documented By: KAYLEE Insulin Human Lispro (Insulin Lispro 100 Unit/Ml 3 Ml Vial) 0 unit SUBCUT QIDACHS [facility]; Protocol Last Admin: 05/16/23 11:30 Dose: Not Given Documented By: KAYLEE Non-Admin Reason: No Insulin Coverage Melatonin (Melatonin 3 Mg Tablet) 6 mg PO BEDTIME PRN PRN Reason: Insomnia Last Admin: 05/14/23 20:39 Dose: 6 mg Documented By: DHRUV Methadone HCl (Methadone Hcl 20 Mg/2 Ml Oral.Conc) 90 mg PO DAILY [facility] Last Admin: 05/16/23 09:09 Dose: 90 mg Documented By: KAYLEE Morphine Sulfate (Morphine Sulfate 4 Mg/Ml Cartridge) 4 mg IVPUSH Q4H PRN; Protocol PRN Reason: Pain, Severe (Pain Scale 7-10) Last Admin: 05/16/23 10:31 Dose: 4 mg Documented By: KAYLEE Ondansetron HCl (Ondansetron Hcl 4 Mg/2 Ml Vial) 4 mg IVPUSH Q8H PRN PRN Reason: Nausea and Vomiting Ondansetron HCl (Ondansetron Hcl 4 Mg/2 Ml Vial) 4 mg IVPUSH ONCE PRN PRN Reason: Nausea and Vomiting Pharmacy Consult (Consult Rx Vancomycin Dosing) 1 each MISCELLANE DAILY PRN PRN Reason: Consult order Prazosin HCl (Prazosin Hcl 1 Mg Capsule) 2 mg PO BEDTIME [facility]; Protocol Last Admin: 05/15/23 22:25 Dose: 2 mg Documented By: LEXI Quetiapine Fumarate (Quetiapine Fumarate 50 Mg Tablet) 50 mg PO BEDTIME [facility] Last Admin: 05/15/23 22:25 Dose: 50 mg Documented By: LEXI Quetiapine Fumarate (Quetiapine Fumarate 100 Mg Tablet) 100 mg PO BEDTIME [facility] Last Admin: 05/15/23 22:25 Dose: 100 mg Documented By: LEXI Sodium Chloride (0.9 % Sodium Chloride Flush 3 Ml Syringe) 3 ml IVFLUSH QSHIFT [facility] Last Admin: 05/16/23 09:12 Dose: 3 ml Documented By: KAYLEE Labs 05/16/23 07:04 05/16/23 07:04 Labs: Laboratory Results - last 24 hr 05/15/23 05/15/23 05/15/23 13:42 16:38 20:34 MCV MCH MCHC RDW Plt Count MPV Absolute Nucleated RBC Nucleated RBC % (auto) Estim Creat Clear Calc Estimated GFR POC Glucose 98 77 132 H Random Vancomycin 05/16/23 05/16/23 05/16/23 07:04 07:04 07:04 MCV 84.4 MCH 27.6 MCHC 32.7 RDW 12.7 Plt Count 216 MPV 9.6 Absolute Nucleated RBC 0.000 Nucleated RBC % (auto) 0.0 Estim Creat Clear Calc 114.5 Estimated GFR > 60 POC Glucose Random Vancomycin 14.0 L 05/16/23 05/16/23 07:22 11:12 MCV MCH MCHC RDW Plt Count MPV Absolute Nucleated RBC Nucleated RBC % (auto) Estim Creat Clear Calc Estimated GFR POC Glucose 91 116 H Random Vancomycin Microbiology Microbiology Results: Microbiology 05/13/23 19:32 Blood Culture - Preliminary Blood - Venous No growth after 48 hours. 05/13/23 19:32 Blood Culture - Preliminary Blood - Venous No growth after 48 hours. Assessment and Plan (1) Abscess of forearm, right: Status: Acute Assessment and Plan: 52-year-old male with pertinent history of IV poly substance use disorder, cko-cxuhtbz-raxjxsfcj diabetes mellitus, mood disorder, tobacco use disorder who presents to the emergency department for evaluation of right arm pain, swelling redness. ? Sepsis due to right arm cellulitis and abscess.? continue IV? vanco and Zosyn started 05/13, ?? ? cont. IV morphine, Tylenol,WBC trending down, normal lactic acid, blood cultures x2? negative times 24 hours ?? ? underwent I&D in OR by ortho on 05/15/23. ?? ? follow CBC and clinical course if looking better will discharge home on by mouth Augmentin for total 7 days. ? Poly substance use disorder.? denies current use of IV drugs, urine toxicology showed no drugs. continue methadone. Tobacco use disorder. counseling done, declined nicotine patch. ? Fci-peovbnq-czafjzdia diabetes mellitus.? diabetic diet,? Stable blood sugars, on Accu-Cheks with sliding scale insulin. ? Mood disorder.? Continue home mood stabilizers including Seroquel, Neurontin and prazosin DVT prophylaxis:? Lovenox Full code inpatient need :right upper extremity cellulitis requiring IV antibiotics.cellulitis area -not optimal improvement yet. Time Spent With Patient Time: Total time managing care of this patient today ____ minutes. Quality Stroke Does the patient have a stroke diagnosis?: No VTE Prior VTE?: No VTE Risk Level:: Medical - moderate - high VTE Device Contraindication: Treatment Not Indicated VTE Drug Contraindication: N/A - Med Ordered
--- NOTE | 2023-05-16 13:49 | HO.POSTANES ---
Post Anesthesia Evaluation Post Anesthesia Evaluation Date of Service: 05/16/23 Vital Signs: Vital Signs Temp Pulse Resp BP Pulse Ox O2 Del Method 05/16/23 07:35 96.9 F 84 18 131/84 99 Room Air 05/16/23 03:04 97.3 F 87 16 121/71 96 Room Air Anesthesia: General Mental Status: Awake Pain Control: Satisfactory Nausea/Vomiting: None Hydration: Adequate Anesthesia-Related Issues: No Anes. Related Issues
[2023-05-16 15:04] VITALS: O2SAT 95
[2023-05-16 15:19] VITALS: BP 120/72; PULSE 86; RESP 18; TEMP 36.6; O2SAT 95
[2023-05-16 16:41] LABS: Glucose, Whole Blood 121 mg/dL (60-115)
[2023-05-16 19:33] VITALS: BP 135/84; PULSE 73; RESP 18; TEMP 36.1; O2SAT 97
[2023-05-16 19:49] LABS: Glucose, Whole Blood 93 mg/dL (60-115)
[2023-05-16] MEDS: QUEtiapine Fumarate 100 MG TABLET PO (20:16)
[2023-05-16] MEDS: QUEtiapine Fumarate 50 MG TABLET PO (20:16)
[2023-05-16] MEDS: Prazosin HCL 1 MG CAPSULE 2 MG PO (20:16)
[2023-05-16] MEDS: Enoxaparin Sodium 40 MG/0.4 ML SYRINGE SUBCUT (22:49)
[2023-05-17] MEDS: Morphine Sulfate 4 MG/ML CARTRIDGE IVPUSH ×3 (03:30→19:06)
[2023-05-17 04:00] VITALS: BP 131/75; PULSE 86; RESP 16; TEMP 36.1; O2SAT 97
[2023-05-17] MEDS: Piperacillin Sodium/Tazobactam 4.5 GM in 0.9 % Sodium Chloride 100 ML IV ×4 (05:45→23:41)
[2023-05-17] MEDS: Acetaminophen 325 MG TABLET 650 MG PO (05:50)
[2023-05-17 07:16] LABS: Vancomycin Random 12.4 mcg/mL (15-20)
[2023-05-17 07:27] LABS: Creatinine Clr Calc Pharmacy 109.2; Estimated Glomerular Filt Rate > 60
[2023-05-17 07:28] LABS: Glucose, Whole Blood 162 mg/dL (60-115)
[2023-05-17 07:45] VITALS: BP 112/73; PULSE 75; RESP 18; TEMP 36.1; O2SAT 97
[2023-05-17] MEDS: methADONE HCl 20 MG/2 ML ORAL.CONC 90 MG PO (08:58)
[2023-05-17] MEDS: Insulin Lispro 100 UNIT/ML 3 ML VIAL SUBCUT (09:03)
[2023-05-17] MEDS: Gabapentin 300 MG CAPSULE PO ×3 (09:12→20:03)
[2023-05-17] MEDS: 0.9 % Sodium Chloride Flush 3 ML SYRINGE IVFLUSH ×3 (09:14→20:03)
[2023-05-17] MEDS: vancomycin HCL 1,500 MG in 0.9 % Sodium Chloride 500 ML 333.33 MG IV ×2 (09:14→21:06)
--- NOTE | 2023-05-17 09:29 | PM.PNORT ---
Subjective Subjective Date of Service: 05/17/23 Interval history: POD2 s/p right dorsal forearm I&D. Pain is managed. No overnight events. No additional compalints. Physical Exam Vital Signs: Vital Signs: Last Vital Signs Temp 96.9 F 05/17/23 07:45 Pulse 75 05/17/23 07:45 Resp 18 05/17/23 07:45 BP 112/73 05/17/23 07:45 Pulse Ox 97 05/17/23 07:45 O2 Del Method Room Air 05/17/23 07:45 BMI result Body Mass Index 28.1 Const: General: cooperative, healthy appearing and no acute distress Resp: Effort & Inspection: normal respiratory effort and able to speak in complete sentences Cardio: Rate: regular rate Peripheral pulses: Peripheral pulses 2+ throughout GI: Palpation (GI): Soft to palpation Skin: Lesions: no lesions Rashes: no rashes Extrem: Other: Right forearm incision site is c/d/i. Removed at bed side. New dressing placed. Erythema decreasing along the dorsal aspect of the forearm. NVI. Procedures Date of Service Date of Service: 05/17/23 Progress Note: A&P Assessment and plan (1) Abscess of forearm, right: Status: Acute (2) Cellulitis: Status: Acute (3) Polysubstance abuse: Status: Acute (4) Non-insulin dependent type 2 diabetes mellitus: Status: Acute (5) IV drug user: Status: Acute Plan Wet to dry dressings New Dressing placed Dressing changes once a day Encourage gentle ROM of the elbow hand and wrist Okay to d/c from ortho perspective Time Spent With Patient Time: Total time managing care of this patient today ____ minutes. Quality Stroke Does the patient have a stroke diagnosis?: No VTE Prior VTE?: No VTE Risk Level:: Medical - moderate - high VTE Device Contraindication: Treatment Not Indicated VTE Drug Contraindication: N/A - Med Ordered
--- NOTE | 2023-05-17 09:30 | P.PNIM_ITS ---
Subjective Subjective Date of Service: 05/18/23 Interval History: right arm cellulitis Review of Systems seems arm? pain and rom improving Physical Exam Vital Signs: Vital Signs: Last Vital Signs Temp 96.9 F 05/17/23 07:45 Pulse 75 05/17/23 07:45 Resp 18 05/17/23 07:45 BP 112/73 05/17/23 07:45 Pulse Ox 97 05/17/23 07:45 O2 Del Method Room Air 05/17/23 07:45 BMI result Body Mass Index 28.1 CVS? regular rate rhythm Respiratory lungs clear to auscultation,? no wheeze, no rhonchi. Gastrointestinal abdomen soft, non tender, bowel sounds audible,? no guarding , no rigidity. right forearm? diffuse swelling, redness, warmth, tenderness to palpation- improving somewhat ,moves right extermity better. Lower Extremities no edema.Skin no rash Neuro nonfocal psych appropriate affect Objective Data Active Medications Acetaminophen (Acetaminophen 325 Mg Tablet) 650 mg PO Q6H PRN PRN Reason: Pain, Mild (Pain Scale 1-3) Last Admin: 05/17/23 05:50 Dose: 650 mg Documented By: JONATHON Benzocaine (Throat Lozenge, Medicated Lozenge) 1 lozenge MUCOUS MEM Q2H PRN PRN Reason: Sore Throat Last Admin: 05/16/23 06:27 Dose: 1 lozenge Documented By: LEXI Dextrose (Dextrose 50 % 25 Gm/50 Ml Syringe) 25 gm IVPUSH Q15M PRN; Protocol PRN Reason: per Hypoglycemia Standing Ord. Enoxaparin Sodium (Enoxaparin Sodium 40 Mg/0.4 Ml Syringe) 40 mg SUBCUT Q24H [facility] Last Admin: 05/16/23 22:49 Dose: 40 mg Documented By: JONATHON Gabapentin (Gabapentin 300 Mg Capsule) 300 mg PO TID [facility] Last Admin: 05/17/23 09:12 Dose: 300 mg Documented By: KAYLEE Glucose (Glucose Gel 15 Gm Gel..Gram.) 15 gm PO Q15M PRN; Protocol PRN Reason: per Hypoglycemia Standing Ord. Hydromorphone HCl (Hydromorphone Hcl 0.5 Mg/0.5 Ml Syringe) 0.25 mg IVPUSH Q5M PRN; Protocol PRN Reason: Pain, Severe (Pain Scale 7-10) Piperacillin Sod/Tazobactam (Sod 4.5 gm/ Sodium Chloride) 100 mls @ 200 mls/hr IV Q6H [facility] Last Infusion: 05/17/23 06:17 Dose: 0 mls/hr Documented By: JONATHON Vancomycin HCl 1,500 mg/ (Sodium Chloride) 500 mls @ 333.333 mls/hr IV Q12H [facility] Last Admin: 05/17/23 09:14 Dose: 333.33 mls/hr Documented By: KAYLEE Insulin Human Lispro (Insulin Lispro 100 Unit/Ml 3 Ml Vial) 0 unit SUBCUT QIDACHS [facility]; Protocol Last Admin: 05/17/23 09:03 Dose: 2 unit Documented By: KAYLEE Melatonin (Melatonin 3 Mg Tablet) 6 mg PO BEDTIME PRN PRN Reason: Insomnia Last Admin: 05/14/23 20:39 Dose: 6 mg Documented By: DHRUV Methadone HCl (Methadone Hcl 20 Mg/2 Ml Oral.Conc) 90 mg PO DAILY [facility] Last Admin: 05/17/23 08:58 Dose: 90 mg Documented By: KAYLEE Morphine Sulfate (Morphine Sulfate 4 Mg/Ml Cartridge) 4 mg IVPUSH Q4H PRN; Protocol PRN Reason: Pain, Severe (Pain Scale 7-10) Last Admin: 05/17/23 09:04 Dose: 4 mg Documented By: KAYLEE Ondansetron HCl (Ondansetron Hcl 4 Mg/2 Ml Vial) 4 mg IVPUSH Q8H PRN PRN Reason: Nausea and Vomiting Ondansetron HCl (Ondansetron Hcl 4 Mg/2 Ml Vial) 4 mg IVPUSH ONCE PRN PRN Reason: Nausea and Vomiting Pharmacy Consult (Consult Rx Vancomycin Dosing) 1 each MISCELLANE DAILY PRN PRN Reason: Consult order Prazosin HCl (Prazosin Hcl 1 Mg Capsule) 2 mg PO BEDTIME [facility]; Protocol Last Admin: 05/16/23 20:16 Dose: 2 mg Documented By: JONATHON Quetiapine Fumarate (Quetiapine Fumarate 50 Mg Tablet) 50 mg PO BEDTIME [facility] Last Admin: 05/16/23 20:16 Dose: 50 mg Documented By: JONATHON Quetiapine Fumarate (Quetiapine Fumarate 100 Mg Tablet) 100 mg PO BEDTIME [facility] Last Admin: 05/16/23 20:16 Dose: 100 mg Documented By: JONATHON Sodium Chloride (0.9 % Sodium Chloride Flush 3 Ml Syringe) 3 ml IVFLUSH QSHIFT [facility] Last Admin: 05/17/23 09:14 Dose: 3 ml Documented By: KAYLEE Labs 05/16/23 07:04 05/17/23 06:53 Labs: Laboratory Results - last 24 hr 05/16/23 05/16/23 05/16/23 11:12 16:33 19:29 Estim Creat Clear Calc Estimated GFR POC Glucose 116 H 121 H 93 Random Vancomycin 05/17/23 05/17/23 05/17/23 06:53 06:53 07:20 Estim Creat Clear Calc 109.2 Estimated GFR > 60 POC Glucose 162 H Random Vancomycin 12.4 L Assessment and Plan (1) Abscess of forearm, right: Status: Acute Assessment and Plan: 52-year-old male with pertinent history of IV poly substance use disorder, mkm-ngpgsol-gtswhuhxr diabetes mellitus, mood disorder, tobacco use disorder who presents to the emergency department for evaluation of right arm pain, swelling redness. ? Sepsis due to right arm cellulitis and abscess.? continue IV? vanco and Zosyn started 05/13, ?? ? cont. IV morphine, Tylenol,WBC trending down, normal lactic acid, blood cu ltures x2? negative times 24 hours ?? ? underwent I&D in OR by ortho on 05/15/23. ?? ? follow CBC and clinical course if looking better will discharge home on by mouth Augmentin for total 7 days. ? Poly substance use disorder.? denies current use of IV drugs, urine toxicology showed no drugs. continue methadone. Tobacco use disorder. counseling done, declined nicotine patch. ? Bdl-puxofnv-nswnvbezk diabetes mellitus.? diabetic diet,? Stable blood sugars, on Accu-Cheks with sliding scale insulin. ? Mood disorder.? Continue home mood stabilizers including Seroquel, Neurontin and prazosin DVT prophylaxis:? Lovenox Full code inpatient need :right upper extremity cellulitis requiring IV antibiotics. blood cultures x2? needto wait until 48 hours negative. Time Spent With Patient Time: Total time managing care of this patient today ____ minutes. Quality Stroke Does the patient have a stroke diagnosis?: No VTE Prior VTE?: No VTE Risk Level:: Medical - moderate - high VTE Device Contraindication: Treatment Not Indicated VTE Drug Contraindication: N/A - Med Ordered
[2023-05-17 11:47] LABS: Glucose, Whole Blood 122 mg/dL (60-115)
--- NOTE | 2023-05-17 12:55 | MHC.CM.PN ---
Addendum entered by Lela Ramírez 05/17/23 13:03: FAX NUMBER FOR [facility] TO SEND LAST DOSE LETTER WHEN DC'D: [phone] Original Note: CM SPOKE WITH CHRISTO AT [facility] IN [facility] ([phone]) WHO STATES PT IS ALREADY SET UP WITH THIS CLINIC FOR PERMANENT DOSING, WILL NEED A LAST DOSE LETTER UPON DC. CM WILL FOLLOW FOR ANY CHANGES IN DC PLAN/NEEDS.
[2023-05-17 15:00] VITALS: O2SAT 99
[2023-05-17 15:28] VITALS: BP 136/81; PULSE 67; RESP 16; TEMP 36.4; O2SAT 99
[2023-05-17 16:22] LABS: Glucose, Whole Blood 95 mg/dL (60-115)
[2023-05-17 19:24] VITALS: BP 146/74; PULSE 62; RESP 16; TEMP 36.2; O2SAT 98
[2023-05-17] MEDS: QUEtiapine Fumarate 50 MG TABLET PO (20:03)
[2023-05-17] MEDS: QUEtiapine Fumarate 100 MG TABLET PO (20:03)
[2023-05-17] MEDS: Prazosin HCL 1 MG CAPSULE 2 MG PO (20:03)
[2023-05-17 20:12] LABS: Glucose, Whole Blood 90 mg/dL (60-115)
[2023-05-17] MEDS: Enoxaparin Sodium 40 MG/0.4 ML SYRINGE SUBCUT (21:07)
[2023-05-18 04:00] VITALS: BP 124/77; PULSE 75; RESP 20; TEMP 36.1; O2SAT 98
[2023-05-18] MEDS: Piperacillin Sodium/Tazobactam 4.5 GM in 0.9 % Sodium Chloride 100 ML IV (05:41)
[2023-05-18 06:04] LABS: Creatinine Clr Calc Pharmacy 106.7; Estimated Glomerular Filt Rate > 60
--- NOTE | 2023-05-18 07:36 | PC.NURSE ---
Refusing fall risk interventions
[2023-05-18 07:46] LABS: Glucose, Whole Blood 90 mg/dL (60-115)
[2023-05-18 08:00] VITALS: BP 123/82; PULSE 77; RESP 18; TEMP 36; O2SAT 98
[2023-05-18] MEDS: Gabapentin 300 MG CAPSULE PO (08:02)
[2023-05-18] MEDS: methADONE HCl 20 MG/2 ML ORAL.CONC 90 MG PO (08:02)
[2023-05-18] MEDS: 0.9 % Sodium Chloride Flush 3 ML SYRINGE IVFLUSH (08:33)
[2023-05-18] MEDS: vancomycin HCL 1,500 MG in 0.9 % Sodium Chloride 500 ML 333.33 MG IV (08:34)
--- NOTE | 2023-05-18 10:33 | P.DS_ITS ---
DS: Providers Provider Date of Service: 05/18/23 Date of admission: 05/13/23 21:28 Date of discharge: 05/18/23 Primary care physician: MARYANNE LYMAN Consults: 05/13/23 21:27 Addiction Medicine Stat Consulting Provider: Addiction Covering Reason for consultation: polysubstance use disorder 05/13/23 21:39 Consult to General Surgery [place]ine [place] [facility] [place] Reason for consultation: Right arm abscess 05/14/23 06:29 Consult to Orthopedics [place]ine Consulting Provider[place] [facility] [place] [facility] Reason for consultation: arm abscess Attending physician on discharge: Elizabeth Lipscomb Discharging clinician: Elizabeth Lipscomb DS: Diagnosis Discharge Diagnosis (1) Abscess of forearm, right: Status: Acute (2) Cellulitis: Status: Acute DS: Summary Hospital Course Hospital Course: 52-year-old male with pertinent history of IV poly substance use disorder, non- insulin-dependent diabetes mellitus, mood disorder, tobacco use disorder who presents to the emergency department for evaluation of right arm pain, swelling redness.? Patient states it started 2 days prior to presentation.? It has been progressive and associated with purulent drainage.? Patient states that he does have a history of multiple abscesses in the past due to his history of IV drug use.? He uses IV heroin and IV fentanyl.? Admits chills and fever.? No chest discomfort, palpitations, shortness of breath, abdominal pain, changes in urinary or bowel habits. In the emergency department, patient was found to be septic and imaging concerning for abscess. Hospital course: Patient was admitted due to sepsis secondary to right arm cellulitis and abscess-patient was started on IV antibiotics, pain control , blood cultures sent and in additional underwent I&D in OR by ortho on 05/15/23. Subsequently arm cellulitis, erythema, pain seem to improved significantly going home with p.o. antibiotics. Leukocytosis improved,no fever, blood culture negative at 48 hours. Please complete p.o. antibiotics for 10 days. Patient is to follow up outpatient with surgery . Above management discussed with the patient in detail length he understand and in agreement with the above plan, time spent 50 minutes and 50% time spent on counseling. Time Spent with Patient Time attestation: Total time managing care of this patient today ____ minutes. Discharge coordination time: Greater than 30 minutes Quality: Safe Use of Opioids Does Pt have an Active Cancer Diagnosis on the Problem List?: No Quality: Stroke Does the patient have a stroke diagnosis?: No Physical Exam Vital Signs: Vital Signs: Last Vital Signs Temp 96.8 F 05/18/23 08:00 Pulse 77 05/18/23 08:00 Resp 18 05/18/23 08:00 BP 123/82 05/18/23 08:00 Pulse Ox 98 05/18/23 08:00 O2 Del Method Room Air 05/18/23 08:00 BMI result Body Mass Index 28.1 CVS? regular rate rhythm Respiratory lungs clear to auscultation,? no wheeze, no rhonchi. Gastrointestinal abdomen soft, non tender, bowel sounds audible,? no guarding , no rigidity. right forearm? diffuse swelling, redness, warmth, tenderness to palpation- improving somewhat ,moves right extermity better. Lower Extremities no edema.Skin no rash Neuro nonfocal psych appropriate affect DS: Data Data Completed and Pending Labs on day of discharge: Laboratory Results - last 24 hr 05/17/23 05/17/23 05/17/23 11:41 16:13 20:02 Creatinine Estim Creat Clear Calc Estimated GFR POC Glucose 122 H 95 90 05/18/23 05/18/23 05:32 07:27 Creatinine 0.89 Estim Creat Clear Calc 106.7 Estimated GFR > 60 POC Glucose 90 Preliminary micro results at discharge 05/13/23 19:32 Blood Culture - Preliminary Blood - Venous No growth after 48 hours. 05/13/23 19:32 Blood Culture - Preliminary Blood - Venous No growth after 48 hours. Imaging Chest x-ray: Radiologist's impression: ITS Impressions Venous Duplex 05/13/23 18:13 IMPRESSION: 1. No DVT demonstrated in the right upper extremity. 2. Right cephalic vein was not well visualized. 3. Lymph node noted in the right distal arm measuring 9 mm in short axis. 4. Soft tissue edema involving the right distal arm in the region of the wound. Forearm X-Ray 05/13/23 18:41 IMPRESSION: Diffuse subcutaneous edema. No soft tissue gas or radiopaque foreign body. Forearm CT 05/13/23 20:22 IMPRESSION: Diffuse subcutaneous edema, most prominent along the posterior aspect of the proximal forearm where there is a 2.2 x 0.8 x 1.7 cm peripherally enhancing collection which could represent an abscess. Discharge Plan Discharge Anticipated Discharge Date/Time: 05/18/23 09:58 Patient Disposition: Home, Self-Care Discharge Diagnosis: arm cellulitis Referrals: Corina Pearce PA-C [Physician Bun Panner] - 05/24/23 2:45 pm Physician,Unknown J [Physician] - 1 Week Discharge Medications: New doxycycline monohydrate 100 mg Capsule 100 mg PO Q12H Qty: 19 0RF amoxicillin-pot clavulanate 875-125 mg Tablet 875 mg PO Q12H Qty: 19 0RF Continued quetiapine [Seroquel] 100 mg tablet 100 mg PO BEDTIME gabapentin [Neurontin] 300 mg capsule 300 mg PO TID prazosin 2 mg capsule 2 mg PO BEDTIME quetiapine [Seroquel] 50 mg tablet 50 mg PO BEDTIME methadone [Methadone Intensol] 10 mg/mL Concentrate 90 mg PO DAILY Discharge Orders: Discharge Order (Routine); Ordered 05/18/23 Ordered By: Elizabeth Lipscomb Diet: Advance to usual diet Activity on Discharge: As tolerated Stand Alone Forms: Patient Portal Discharge page Care Plan Goals: Patient was admitted due to sepsis secondary to right arm cellulitis and abscess-patient was started on IV antibiotics, pain control , blood cultures sent and in additional underwent I&D in OR by ortho on 05/15/23. Subsequently arm cellulitis, erythema, pain seem to improved significantly going home with p.o. antibiotics. Leukocytosis improved,no fever, blood culture negative at 48 hours. Please complete p.o. antibiotics for 10 days. Health Concerns: take all home medications as before. Plan of Treatment: outpatient follow-up with primary care physician wet to dry dressings daily wet to dry dressing changes followup with orthopedics 05/24/23 at 2:45pm Assessment: as above
--- NOTE | 2023-05-18 10:44 | MHC.CM.PN ---
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
[2023-05-18] MEDS: Doxycycline Monohydrate 100 MG CAPSULE PO (10:48)
[2023-05-18] MEDS: Amoxicillin/Potassium Clav 875 MG TABLET PO (11:09)
[2023-05-18 11:26] LABS: Glucose, Whole Blood 110 mg/dL (60-115)
--- NOTE | 2023-05-30 07:39 | P.CDIM_ITS ---
PROVIDER RESPONSE TEXT: To clarify, the appropriate diagnosis supported by the clinical indicators: Other (explain): Unable to determine -please see surgery operative notes-seems like skin levels but u nable to tell from operative note thefull extent of it. QUERY TEXT: PHYSICIAN'S DOCUMENTATION REQUEST Date of Query: 05/24/2023 01:57 PM EDT Patient Name: Kenneth Joshi Admit Date: 05/14/2023 Dear Elizabeth Lipscomb, A review of the medical record indicates additional documentation may be needed. Please review below and update the documentation accordingly. Clinical Indicators: Per Operative Note 05/16/23: debrided the wound with a currette and a rongeur and irrigated copiously with pulse lavage. There was a 1 cm x 1 cm loss of skin . debrided the edges of the necrotic area and placed a kerlex packing Could you provide, in the Progress Notes, further clarification regarding the deepest level of the de bridement? bones muscle skin subcutaneous tissue and fascia tendon Could you provide further clarification regarding the type and depth and nature of the debridement? Excisional debridement Non-excisional debridement Other (explain)Clinically unable to determine (explain)Thank you, Naa Richter RN Use of terms such as suspected, likely, concern for, or probable (associated with a specific diagnosi s that is being evaluated, monitored, or treated as if it exists) are acceptable and can be coded in the inpatient se tting, when documented at the time of discharge. Please use your independent medical judgment in providing your response. THIS QUERY IS PART OF THE PERMANENT MEDICAL RECORD
== END 2023-05-18 13:08 | disposition home or self-care (01) | DRG 720 ==
LOC: HO.ED 19:04 → HO.EDOVER 21:32 → HO.S3 05-14 12:50
PROVIDERS: Hospitalist; Orthopaedic Surgery; Physician Assistant; Physician Assistant Surgical; Admitting Provider Student in an Organized Health Care Education/Training Program; Emergency Provider Internal Medicine; PCP Internal Medicine; Visit Provider Internal Medicine
PROC: 0HBDXZZ Excision of Right Lower Arm Skin, External Approach (ICD-10-PCS; principal; 2023-05-15 15:40)
DX: A41.9 Sepsis, unspecified organism (principal); I96 Gangrene, not elsewhere classified; E11.9 Type 2 diabetes mellitus without complications; L02.413 Cutaneous abscess of right upper limb; F19.10 Other psychoactive substance abuse, uncomplicated; F17.210 Nicotine dependence, cigarettes, uncomplicated; L03.113 Cellulitis of right upper limb; Z71.6 Tobacco abuse counseling; F39 Unspecified mood [affective] disorder
CPT/HCPCS: 36415; 73090; 73201; 80048; 80053; 80202; 80307; 82565; 82947; 83605; 85025; 85027; 85652; 86140; 87040; 92950; 93971; 99285; J0131; J1650; J1885; J2250; J2270; J2543; J2795; J3010; J3370; J3371; Q9967

== ENCOUNTER → 2023-05-13 21:28 | Outpatient (BNV) | payer MEDICAID, SELFPAY | PROVIDERS: Admitting Provider Student in an Organized Health Care Education/Training Program; Emergency Provider Internal Medicine; Visit Provider Student in an Organized Health Care Education/Training Program | DX: L02.413 Cutaneous abscess of right upper limb (principal); L03.113 Cellulitis of right upper limb | CPT/HCPCS: 99222; 99231; 99232; 99233; 99239 ==

== ENCOUNTER → 2023-05-13 21:28 | Outpatient (BNV) | payer MEDICAID, SELFPAY | PROVIDERS: Admitting Provider Student in an Organized Health Care Education/Training Program; Emergency Provider Internal Medicine; Visit Provider Orthopaedic Surgery | DX: L02.413 Cutaneous abscess of right upper limb (principal); L03.90 Cellulitis, unspecified; Z48.89 Encounter for other specified surgical aftercare | CPT/HCPCS: 11042; 25028; 99024; 99231; 99232 ==

== ENCOUNTER → 2023-05-13 21:28 | Outpatient (BNV) | payer MEDICAID, SELFPAY | PROVIDERS: Admitting Provider Student in an Organized Health Care Education/Training Program; Emergency Provider Internal Medicine; Visit Provider Surgery | DX: L02.413 Cutaneous abscess of right upper limb (principal); L03.90 Cellulitis, unspecified; F19.10 Other psychoactive substance abuse, uncomplicated; E11.9 Type 2 diabetes mellitus without complications; F19.90 Other psychoactive substance use, unspecified, uncomplicated; F39 Unspecified mood [affective] disorder | CPT/HCPCS: 99222 ==